=== PATIENT | female | born 1955 | race Caucasian/White ===

== ENCOUNTER 2018-04-17 11:03 | Emergency (ER) | payer MEDICARE, MEDICAID ==
--- NOTE | 2018-04-17 12:11 | ER Document Report ---
HPI - HPI Patient complains to provider of: LEFT KNEE PAIN Time Seen by Provider: 04/17/18 12:03 Onset: Last week Onset/Duration: Sudden, Persistent Quality of pain: Achy Severity: Severe Pain Level: 4 Context: She presents emergency department with complaints of left knee pain. Patient reports on [place] nancy she fell outside onto her anterior knee. Reports it has hurt since that time. She reports she is able to barely walk but with se sal pain. She is unable to straighten her leg without pain. Her sister drove her here. She has been taking tramadol for the pain without relief of symptoms. Previous trauma to the knee. Associated Symptoms: None Exacerbated by: Movement, Walking Relieved by: Denies Similar symptoms previously: No Recently seen / treated by doctor: No - CONSTITUTIONAL Constitutional: DENIES: Fever, Chills - REPRODUCTIVE Reproductive: DENIES: : - MUSCULOSKELETAL Musculoskeletal: REPORTS: Extremity pain - left knee Past Medical History - General Information source: Patient - Social History Smoking Status: Former Smoker Cigarette use (# per day): No Frequency of alcohol use: None Drug Abuse: None Family History: None Patient has suicidal ideation: No Patient has homicidal ideation: No Endocrine Medical History: Reports: Hx Diabetes Mellitus Type 1 Renal/ Medical History: Denies: Hx Peritoneal Dialysis Musculoskeletal Medical History: Reports Hx Arthritis Past Surgical History: Reports: Hx Cholecystectomy, Hx Orthopedic Surgery - right knee replacement, bilateral carpal tunnel, fusion of L3-L4, Hx Tubal Ligation Vertical Provider Document - CONSTITUTIONAL Agree With Documented VS: Yes Exam Limitations: No Limitations General Appearance: WD/WN, Mild Distress - WINCES WHEN KNEE IS PALPATED OR moved - INFECTION CONTROL TRAVEL OUTSIDE OF THE [place] IN LAST 30 DAYS: No - HEENT HEENT: Atraumatic, Normocephalic - NECK Neck: Supple - RESPIRATORY Respiratory: No Respiratory Distress - CARDIOVASCULAR Cardiovascular: Regular Rate - MUSCULOSKELETAL/EXTREMETIES Musculoskeletal/Extremeties: Tender. negative: Eccymosis - NEURO Level of Consciousness: Awake, Alert, Appropriate - DERM Integumentary: Warm, Dry Adult Front & Back Diagram: 1 - Patient complains of severe pain when her anterior knee is palpated or with any movement. Unable to extend due to pain. No obvious deformity no erythema swelling or warmth good pedal pulse Course - Re-evaluation Re-evalutation: 04/17/18 1335 patella fracture noted. Contacted Dr. Ozuna. Plan of care is to apply knee immobilizing splint and place patient on walker or crutches her choice. Patient will follow up with Dr. Ozuna on Saturday. Discussed this plan of care with patient she verbalized understanding and agrees to plan. 04/17/18 14:06 Patient declines crutches and reports she has a walker at home she will use. - Vital Signs Vital signs: Temp Pulse Resp BP Pulse Ox 98.2 F 93 18 118/56 L 98 04/17/18 11:12 04/17/18 11:12 04/17/18 11:12 04/17/18 11:12 04/17/18 11:12 - Diagnostic Test Radiology reviewed: Image reviewed, Reports reviewed - EXAM DESCRIPTION: KNEE LEFT 4 VIEW COMPLETED DATE/TIME: 04/17/2018 12:47 pm REASON FOR STUDY: FELL RIGHT ON KNEE, PAIN COMPARISON: None. NUMBER OF VIEWS: Four views. TECHNIQUE: AP, lateral, and both oblique radiographic images acquired of the left knee. LIMITATIONS: None. FINDINGS: MINERALIZATION: Osteopenia. BONES: Nondisplaced transverse fracture of the patella. JOINT: Small effusion. SOFT TISSUES: Prepatellar swelling. No foreign body. OTHER: No other significant finding. IMPRESSION: Nondisplaced fracture of the patella. TECHNICAL DOCUMENTATION: JOB ID: [id number] [employer]- All Rights Reserved Reading location - IP/workstation name: [email or web address] Dictated by: ANA SCOTT MD [id number] CC: OSCAR WELLER NP > Procedures - Immobilization Left Knee Pre-Proc Neuro Vasc Exam: Normal Immobilizer type: Knee immobilizer Performed by: PCT Post-Proc Neuro Vasc Exam: Unchanged from pre-exam Alignment checked and good: Yes Discharge - Discharge Clinical Impression: Patellar fracture Qualifiers: Encounter type: initial encounter Fracture type: closed Fracture morphology: transverse Fracture alignment: nondisplaced Laterality: left Qualified Code(s): S82.035A - Nondisplaced transverse fracture of left patella, initial encounter for closed fracture Condition: Stable Disposition: HOME, SELF-CARE Instructions: Use of Crutches ([facility]), Fractured Patella ([facility]), Ice & Elevation ([facility]), Knee Effusion ([facility]), Knee Immobilizing Splint ([facility]), Oral Narcotic Medication ([facility]) Additional Instructions: *You have been evaluated for a fractured patella *Rest/Ice/Elevate your knee *Maintain the splint *Use your crutches *Follow up with Dr Ozuna for an appointment for next Saturday *Take medication as prescribed for pain *Return to ED for worsening condition, changes, needs Prescriptions: Oxycodone HCl/Acetaminophen [Percocet 5-325 mg Tablet] 1 tab PO ASDIR PRN #15 tablet PRN Reason: Referrals: LORA OZUNA DO [ACTIVE STAFF] - 04/21/18
--- NOTE | 2018-04-17 13:02 | RADIOLOGY REPORT (SQ) ---
EXAM DESCRIPTION: KNEE LEFT 4 VIEW COMPLETED DATE/TIME: 04/17/2018 12:47 pm REASON FOR STUDY: FELL RIGHT ON KNEE, PAIN COMPARISON: None. NUMBER OF VIEWS: Four views. TECHNIQUE: AP, lateral, and both oblique radiographic images acquired of the left knee. LIMITATIONS: None. FINDINGS: MINERALIZATION: Osteopenia. BONES: Nondisplaced transverse fracture of the patella. JOINT: Small effusion. SOFT TISSUES: Prepatellar swelling. No foreign body. OTHER: No other significant finding. IMPRESSION: Nondisplaced fracture of the patella. TECHNICAL DOCUMENTATION: JOB ID: [id number] [employer]- All Rights Reserved Reading location - IP/workstation name: [email or web address]
[2018-04-17 14:11] VITALS: BP 148/63
== END 2018-04-17 14:13 | disposition home or self-care (01) ==
LOC: ER 11:03
DX: S82.035A Nondisplaced transverse fracture of left patella, initial encounter for closed fracture (principal); M25.562 Pain in left knee; W19.XXXA Unspecified fall, initial encounter; E10.9 Type 1 diabetes mellitus without complications; Z87.891 Personal history of nicotine dependence
CPT/HCPCS: 99283; 73564; L1830

== ENCOUNTER 2019-12-02 20:34 | Emergency (ER) | payer MEDICARE, MEDICAID ==
--- NOTE | 2019-12-02 20:50 | ER Document Report ---
ED General - General Stated Complaint: HEADACHE Time Seen by Provider: 12/02/19 20:39 Primary Care Provider: ZACHARY BETANCOURT MD [Primary Care Provider] - Follow up in 3-5 days Notes: Patient is a 64-year-old female that comes emergency department for chief complaint of a headache on the right side of her head for the past 4 days. It was gradual onset. She states it is constant and has not gone away, she is taken multiple doses of Fioricet without relief, she was here 2 days ago and re- prescribed clindamycin and given Fioricet. She admits she has taken 12 doses of the fioricet today. She denies visual changes, nausea, vomiting, neck pain, head or neck injury, fever/chills, focal numbness or weakness. She states that she has had a lot of oral surgery recently and she is currently on clindamycin, she has had essentially all of her teeth extracted, most recent procedure was about 4 weeks ago. Past medical history of type 1 diabetes with an insulin pump, chronic pain on Percocet, hyperlipidemia, hypothyroidism, anxiety/depression. TRAVEL OUTSIDE OF THE [place] IN LAST 30 DAYS: No - Related Data Allergies/Adverse Reactions: cephalexin [From Keflex] Allergy (Verified 12/02/19 20:48) cisapride [From Propulsid] Allergy (Verified 12/02/19 20:48) Penicillins Allergy (Verified 12/02/19 20:48) Sulfa (Sulfonamide Antibiotics) Allergy (Verified 12/02/19 20:48) Past Medical History - General Information source: Patient - Social History Smoking Status: Never Smoker Drug Abuse: None Lives with: Family Family History: None - Past Medical History Cardiac Medical History: Reports: Hx Hypercholesterolemia Endocrine Medical History: Reports: Hx Diabetes Mellitus Type 1 Renal/ Medical History: Denies: Hx Peritoneal Dialysis Musculoskeletal Medical History: Reports Hx Arthritis Past Surgical History: Reports: Hx Cholecystectomy, Hx Oral Surgery, Hx Orthopedic Surgery - right knee replacement, bilateral carpal tunnel, fusion of L3-L4, Hx Tubal Ligation - Immunizations Hx Diphtheria, Pertussis, Tetanus Vaccination: Yes Review of Systems - Review of Systems Constitutional: No symptoms reported EENT: See HPI Cardiovascular: No symptoms reported Respiratory: No symptoms reported Gastrointestinal: No symptoms reported Genitourinary: No symptoms reported Female Genitourinary: No symptoms reported Musculoskeletal: No symptoms reported Skin: No symptoms reported Hematologic/Lymphatic: No symptoms reported Neurological/Psychological: See HPI Physical Exam - Vital signs Vitals: Temp Pulse Resp BP Pulse Ox 98.0 F 95 16 108/39 L 98 12/02/19 20:41 12/02/19 20:41 12/02/19 20:41 12/02/19 20:41 12/02/19 20:41 - Notes Notes: GENERAL: Alert, interacts well. No acute distress. HEAD: Normocephalic, atraumatic. EYES: Pupils equal, round, and reactive to light. Extraocular movements intact. ENT: Oral mucosa moist, tongue midline. Oropharynx unremarkable. Airway patent. Nares patent, sinuses non-tender, ear canals unremarkable, TM's intact. Patient has no teeth, minimal tenderness along upper and lower gumline's which is nonspecific, no overt swelling, erythema, or abscesses noted. Some pain over the right side of the face with opening of the jaw. NECK: Full range of motion. Supple. Trachea midline. No lymphadenopathy. LUNGS: Clear to auscultation bilaterally, no wheezes, rales, or rhonchi. No respiratory distress. Non-tender chest wall. HEART: Regular rate and rhythm. No murmur ABDOMEN: Soft, non-tender. Non-distended. EXTREMITIES: Moves all 4 extremities spontaneously. No edema, normal radial and dorsalis pedis pulses bilaterally. No cyanosis. BACK: no cervical, thoracic, lumbar midline tenderness. No saddle anesthesia, normal distal neurovascular exam. Moves all extremities in full range of motion. NEUROLOGICAL: Alert and oriented x3. Normal speech. Cranial nerves II through XII grossly intact. Strength 5/5 in all extremities. PSYCH: Normal affect, normal mood. SKIN: Warm, dry, normal turgor. No rashes or lesions noted. Course - Re-evaluation Re-evalutation: Patient reporting headache, denies history of headaches, was evaluated for the same headache 2 days ago and had a negative CAT scan of the head at that time. She does not have any neurological deficits, patient has some discomfort in her jaw with opening her mouth but this does not appear to be related and patient insists that it is not related. She has no signs of trauma or reported trauma, no fever, no nuchal rigidity. CBC unremarkable, chemistry with slightly low sodium, otherwise unremarkable. Patient reportedly took 12 doses of her Fioricet today and nursing staff already called poison control and the recommendation is to monitor the patient for 6 hours and repeat Tylenol at the 4-hour niraj. This will be performed. EKG unremarkable. Tylenol level is borderline, remaining evaluation unremarkable. Because of patient's ongoing headache, lack of history of headaches, I did discuss with Dr. Martínez. Recommendation is MRI of the brain without contrast. I discussed with patient, she is in full agreement with this plan. MRI of the brain with no acute findings or reasons for patient's headache but does show borderline questionable hydrocephalus. I discussed this, hy ponatremia, ongoing dental pain with patient at length. Patient already has established follow-up with the dentist, she will follow-up with primary care with a copy of her MRI for additional monitoring and management, discussed return precautions. Patient has no headache after treatments on my ree valuation's although she did have recurrence once while waiting for repeat Tylenol and this was medicated again. Repeat Tylenol unremarkable. Patient is requesting discharge. Stable and well-appearing at time of discharge. - Vital Signs Vital signs: Temp Pulse Resp BP Pulse Ox 98.4 F 89 16 120/84 96 12/03/19 04:55 12/03/19 04:55 12/03/19 04:55 12/03/19 04:55 12/03/19 04:55 - Laboratory Result Diagrams: 12/02/19 21:55 12/02/19 21:55 Laboratory results interpreted by me: 12/02/19 12/02/19 12/03/19 21:55 21:55 03:22 RDW 14.9 H Plt Count 504 H Sodium 129.9 L Glucose 161 H POC Glucose Alkaline Phosphatase 159 H Salicylates < 1.0 L Acetaminophen < 10 L 12/03/19 03:30 RDW Plt Count Sodium Glucose POC Glucose 195 H Alkaline Phosphatase Salicylates Acetaminophen - EKG Interpretation by Me Additional EKG results interpreted by me: EKG shows sinus rhythm at a rate of 96, QTc 421, borderline axis, borderline T waves anteriorly but no significant T wave inversions or ST segment changes in consecutive leads. Discharge - Discharge Clinical Impression: Mouth pain Headache Qualifiers: Headache type: unspecified Headache chronicity pattern: unspecified pattern Intractability: not intractable Qualified Code(s): R51 - Headache Condition: Stable Disposition: HOME, SELF-CARE Additional Instructions: The MRI of your brain shows no findings to explain your headache. There are some subtle changes on the image, please show your primary care with the report that you have been provided for additional follow-up and management. Remaining work-up does not show any concerning findings. Do not take more than the prescribed doses of any of your medications. This is very dangerous and could lead to great harm or even . Based on your symptoms I suspect the pain is referred pain from your ongoing jaw pain. Please follow-up with your dentist for additional management, continue your clindamycin. Return if you worsen including severe worsening headache, vomiting, fever, or any other concerning symptoms. Referrals: ZACHARY BETANCOURT MD [Primary Care Provider] - Follow up in 3-5 days
[2019-12-02 22:29] LABS: ABSOLUTE BASOPHILS # (AUTO) 0.1 10^3/uL (0.0-0.2); ABSOLUTE EOSINOPHILS # (AUTO) 0.1 10^3/uL (0.0-0.6); ABSOLUTE LYMPHOCYTES (AUTO) 1.9 10^3/uL (0.5-4.7); ABSOLUTE MONOCYTES (AUTO) 0.7 10^3/uL (0.1-1.4); ABSOLUTE NEUT (AUTO) 7.5 10^3/uL (1.7-8.2); BASOPHILS % (AUTO) 0.7 % (0-2); EOSINOPHILS % (AUTO) 0.9 % (0-6); HEMOGLOBIN 12.2 g/dL (12.0-15.5); LYMPHOCYTES % (AUTO) 18.5 % (13-45); MEAN CORPUSCULAR HEMOGLOBIN 27.4 pg (27.0-33.4); MEAN CORPUSCULAR VOLUME 83 fl (80-97); MONOCYTES % (AUTO) 7.2 % (3-13); PLATELET COUNT 504 10^3/uL (150-450); RED BLOOD COUNT 4.46 10^6/uL (3.72-5.28); RED CELL DISTRIBUTION WIDTH 14.9 % (11.5-14.0); SEGMENTED NEUTROPHILS % (AUTO) 72.7 % (42-78); TOTAL CELLS COUNTED % (AUTO) 100 %; WHITE BLOOD COUNT 10.3 10^3/uL (4.0-10.5)
[2019-12-02 22:35] LABS: ACETAMINOPHEN 11 ug/mL (10-30); ALBUMIN 3.7 g/dL (3.5-5.0); ALKALINE PHOSPHATASE 159 U/L (38-126); ANION GAP 6 (5-19); ASPARTATE AMINO TRANSFERASE 29 U/L (14-36); BILIRUBIN,DIRECT 0.2 mg/dL (0.0-0.4); BILIRUBIN,TOTAL 0.7 mg/dL (0.2-1.3); BLOOD UREA NITROGEN 9 mg/dL (7-20); CARBON DIOXIDE 22 mmol/L (22-30); CHLORIDE 102 mmol/L (98-107); GLUCOSE 161 mg/dL (75-110); TOTAL PROTEIN 6.7 g/dL (6.3-8.2)
[2019-12-02 22:42] LABS: SALICYLATE < 1.0 mg/dL (2.0-20.0)
[2019-12-02 22:44] LABS: POTASSIUM 4.7 mmol/L (3.6-5.0)
[2019-12-02] MEDS: DIPHENHYDRAMINE HCL 50 MG/ML VIAL IV ONE (22:48)
--- NOTE | 2019-12-02 22:48 | RADIOLOGY REPORT (SQ) ---
EXAM DESCRIPTION: MR BRAIN WITHOUT IV CONTRAST COMPLETED DATE/TME: 12/02/2019 21:18 CLINICAL INDICATION: 64-year-old female with headache. COMPARISON: Noncontrast CT brain 12/02/2019. TECHNIQUE: Multiplanar, multi-sequence MR imaging of the brain without intravenous administration of contrast. FINDINGS: No abnormal increased signal intensity is present on diffusion-weighted imaging to suggest restricted diffusion/acute infarction. T2/flair weighted imaging reveals multifocal areas of patchy increased signal intensity present in a subcortical and periventricular deep white matter distribution, a nonspecific finding however may be seen with small vessel ischemic change. There is no evidence of intracranial hemorrhage, mass or edema. Midline structures are within normal limits. The ventricles and sulci are enlarged suggesting underlying volume loss versus normal pressure hydrocephalus. Major intracranial flow voids are identified. The paranasal sinuses and mastoid air cells are patent. IMPRESSION: 1. No specific MRI findings noted to suggest etiology of the patient's headache. 2. Ventriculomegaly of uncertain etiology raising the possibility of volume loss versus normal pressure hydrocephalus in the correct clinical setting.
[2019-12-02] MEDS: METOCLOPRAMIDE HCL INJ/PF 10 MG/2 ML SDV IV ONE (22:49)
[2019-12-02] MEDS: NORMAL SALINE 1000 ML 1,000 ML IV ONE (22:49)
[2019-12-02] MEDS: MORPHINE SULFATE 10 MG/ML INJ IV ONE ×2 (23:07→23:08)
[2019-12-03] MEDS: OXYCODONE HCL IR 5 MG TABLET PO ONE (03:45)
[2019-12-03] MEDS: ONDANSETRON 4 MG TAB.RAPDIS PO ONE (03:46)
[2019-12-03] MEDS: FENTANYL CITRATE INJ/PF 100 MCG/2 ML AMPUL IV ONE (03:54)
[2019-12-03] MEDS: METOCLOPRAMIDE HCL INJ/PF 10 MG/2 ML SDV IV ONE (03:54)
[2019-12-03 04:58] VITALS: BP 120/84
--- NOTE | 2019-12-03 15:11 | EKG REPORT ---
SEVERITY:- ABNORMAL ECG - SINUS RHYTHM LEFT ATRIAL ABNORMALITY BORDERLINE T ABNORMALITIES, ANT-LAT LEADS : Confirmed by: Huang Camacho MD 03-Dec-2019 15:11:21
== END 2019-12-03 04:55 | disposition home or self-care (01) ==
LOC: ER 20:34
DX: R51 Headache (principal); K08.89 Other specified disorders of teeth and supporting structures; Z79.899 Other long term (current) drug therapy; Z88.0 Allergy status to penicillin; Z88.2 Allergy status to sulfonamides; Z88.1 Allergy status to other antibiotic agents; Z88.8 Allergy status to other drugs, medicaments and biological substances; E10.9 Type 1 diabetes mellitus without complications
CPT/HCPCS: 93005; 99285; 96374; 96375; 36415; 82962; 80307 ×2; 85025; 80053; 70551; 93010; J1200; A9270 ×2; J2765; J2270; J7030; S0119

== ENCOUNTER 2019-12-09 11:04 | Inpatient (IN) | payer MEDICARE, MEDICAID ==
[2019-12-09] MEDS ORDERED: DEXAMETHASONE SOD PHOS INJ 10 MG/1 ML VIAL IV ONE (11:27)
[2019-12-09] MEDS ORDERED: RINGERS SOLUTION,LACTATED 1,000 ML IV ONE ×2 (11:27→14:06)
[2019-12-09] MEDS ORDERED: MORPHINE SULFATE 10 MG/ML INJ IV ONE ×2 (11:29→12:34)
--- NOTE | 2019-12-09 11:32 | ER Document Report ---
ED Medical Screen (RME) - General Stated Complaint: MOUTH PAIN Time Seen by Provider: 12/09/19 11:17 Primary Care Provider: ZACHARY BETANCOURT MD [Primary Care Provider] - Follow up as needed Mode of Arrival: Wheelchair Information source: Relative Notes: HPI; 64-year-old female presents emergency room with family complaining of difficulty swallowing and speaking. Per sister she has been drooling. Patient had several teeth removed over the past 4 months developed infections. Tried to see the original dentist's office is now closed. Saw an oral surgeon this morning who told her it was not dental related. Referred to the ER for CT. PE: Alert and oriented x3. Difficulty speaking. Lungs: Clear to auscultation without rales, rhonchi, wheezes. Heart: Regular rate rhythm without murmurs, rubs, gallops. Patient unable to open mouth well enough to visualize the posterior pharynx. Obvious swelling noted to the neck. I have greeted and performed a rapid initial assessment of this patient. A comprehensive ED assessment and evaluation of the patient, analysis of test results and completion of the medical decision making process will be conducted by additional ED providers. I have specifically instructed the patient or family members with the patient to immediately return to any nursing staff should anything change in the patient's condition or with their chief complaint. TRAVEL OUTSIDE OF THE [place] IN LAST 30 DAYS: No - Related Data Allergies/Adverse Reactions: cephalexin [From Keflex] Allergy (Verified 12/09/19 11:20) cisapride [From Propulsid] Allergy (Verified 12/09/19 11:20) Penicillins Allergy (Verified 12/09/19 11:20) Sulfa (Sulfonamide Antibiotics) Allergy (Verified 12/09/19 11:20) Past Medical History - Past Medical History Cardiac Medical History: Reports: Hx Hypercholesterolemia Endocrine Medical History: Reports: Hx Diabetes Mellitus Type 1 Renal/ Medical History: Denies: Hx Peritoneal Dialysis Musculoskeltal Medical History: Reports Hx Arthritis Past Surgical History: Reports: Hx Cholecystectomy, Hx Oral Surgery, Hx Orthopedic Surgery - right knee replacement, bilateral carpal tunnel, fusion of L3-L4, Hx Tubal Ligation - Immunizations Hx Diphtheria, Pertussis, Tetanus Vaccination: Yes Physical Exam - Vital signs Vitals: Temp Pulse Resp BP Pulse Ox 98.9 F 107 H 16 135/51 H 100 12/09/19 11:09 12/09/19 11:09 12/09/19 11:09 12/09/19 11:09 12/09/19 11:09 Course - Vital Signs Vital signs: Temp Pulse Resp BP Pulse Ox 98.9 F 107 H 16 135/51 H 100 12/09/19 11:09 12/09/19 11:09 12/09/19 11:09 12/09/19 11:09 12/09/19 11:09 Doctor's Discharge - Discharge Referrals: ZACHARY BETANCOURT MD [Primary Care Provider] - Follow up as needed
[2019-12-09] MEDS ORDERED: ONDANSETRON HCL INJ/PF 4 MG/2 ML SDV IV ONE (12:34)
--- NOTE | 2019-12-09 13:01 | ER Document Report ---
Entered by RANJITH CHIN SCRIBE 12/09/19 1242 Acting as scribe for:VIVI DOS SANTOS MD ED ENT - General Chief Complaint: Difficulty Swallowing Stated Complaint: MOUTH PAIN Time Seen by Provider: 12/09/19 11:17 Primary Care Provider: ZACHARY BETANCOURT MD [Primary Care Provider] - Follow up as needed Mode of Arrival: Wheelchair Information source: Patient Notes: This 64-year-old female patient presents to the emergency department today with complaints of a sore throat with associated swelling. Patient has swelling underneath the tongue at the floor her mouth. Patient is now having difficulty speaking and swallowing because the tongue is pushed up. There is no posterior oropharynx swelling. TRAVEL OUTSIDE OF THE [place] IN LAST 30 DAYS: No - Related Data Allergies/Adverse Reactions: cephalexin [From Keflex] Allergy (Verified 12/09/19 11:20) cisapride [From Propulsid] Allergy (Verified 12/09/19 11:20) Penicillins Allergy (Verified 12/09/19 11:20) Sulfa (Sulfonamide Antibiotics) Allergy (Verified 12/09/19 11:20) Past Medical History - General Information source: Relative - Social History Smoking Status: Former Smoker Cigarette use (# per day): No Chew tobacco use (# tins/day): No Frequency of alcohol use: None Drug Abuse: None Lives with: Family Family History: None Patient has homicidal ideation: No - Past Medical History Cardiac Medical History: Reports: Hx Hypercholesterolemia Endocrine Medical History: Reports: Hx Diabetes Mellitus Type 1 Musculoskeletal Medical History: Reports Hx Arthritis Past Surgical History: Reports: Hx Cholecystectomy, Hx Oral Surgery, Hx Orthopedic Surgery - right knee replacement, bilateral carpal tunnel, fusion of L3-L4, Hx Tubal Ligation - Immunizations Hx Diphtheria, Pertussis, Tetanus Vaccination: Yes Review of Systems - Review of Systems Constitutional: No symptoms reported EENT: See HPI, Throat pain, Difficulty swallowing Cardiovascular: No symptoms reported Respiratory: No symptoms reported Gastrointestinal: No symptoms reported Genitourinary: No symptoms reported Female Genitourinary: No symptoms reported Musculoskeletal: No symptoms reported Skin: No symptoms reported Hematologic/Lymphatic: No symptoms reported Neurological/Psychological: No symptoms reported -: Yes All other systems reviewed and negative Physical Exam - Vital signs Vitals: Temp Pulse Resp BP Pulse Ox 98.9 F 107 H 16 135/51 H 100 12/09/19 11:09 12/09/19 11:09 12/09/19 11:09 12/09/19 11:09 12/09/19 11:09 - Notes Notes: Physical Exam: General: Alert. HEENT: Normocephalic. Atraumatic. PERRL. Extraocular movements intact. Oropharynx clear, no posterior oropharynx edema. Significant swelling at the floor the mouth, grossly swollen and tongue is pushed up. Area is not inflamed. Neck: Supple. Non-tender. Respiratory: No respiratory distress. Clear and equal breath sounds bilaterally. Cardiovascular: Regular rate and rhythm. Abdominal: Normal Inspection. Non-tender. No distension. Normal Bowel Sounds. Back: No gross abnormalities. Extremities: Moves all four extremities. Upper extremities: Normal inspection. Normal ROM. Lower extremities: Normal inspection. No edema. Normal ROM. Neurological: Normal cognition. AAOx4. Normal speech. Psychological: Normal affect. Normal Mood. Skin: Warm. Dry. Normal color. Course - Vital Signs Vital signs: Temp Pulse Resp BP Pulse Ox 98.9 F 107 H 16 135/51 H 100 12/09/19 11:09 12/09/19 11:09 12/09/19 11:09 12/09/19 11:09 12/09/19 11:09 - Laboratory Result Diagrams: 12/09/19 12:49 12/09/19 12:49 Laboratory results interpreted by me: 12/09/19 12/09/19 12:49 12:49 WBC 15.5 H RDW 14.3 H Plt Count 766 H Lymph % (Auto) 10.7 L Absolute Neuts (auto) 12.5 H Seg Neutrophils % 80.6 H Sodium 132.3 L Chloride 96 L Creatinine 0.40 L Glucose 161 H Alkaline Phosphatase 203 H - Diagnostic Test Radiology reviewed: Image reviewed, Reports reviewed - CT scan shows large abscess in the floor the mouth consistent with Griffin's angina. - EKG Interpretation by Ne EKG shows normal: Sinus rhythm, [place], Intervals, QRS Complexes. abnormal: ST-T Waves - Borderline anterolateral T abnormalities Rate: Tachycardia - 108 P Waves: LAE When compared to previous EKG there are: No significant change - Consults Dr. Hope Consulted provider: will see as inpatient - Request I get the hospitalist to admit the patient and notify anesthesia. Dr. Jackson Time consulted: 15:05 Consulted provider: will come to ER Discharge - Discharge Clinical Impression: Ludwigs angina Type 1 diabetes mellitus Qualifiers: Diabetes mellitus complication status: without complication Qualified Code(s): E10.9 - Type 1 diabetes mellitus without complications Leukocytosis Qualifiers: Leukocytosis type: unspecified Qualified Code(s): D72.829 - Elevated white blood cell count, unspecified Condition: Stable Disposition: ADMITTED INPATIENT Admitting Provider: Renetta (Hospitalist) Unit Admitted: Surgical Floor Referrals: ZACHARY BETANCOURT MD [Primary Care Provider] - Follow up as needed I personally performed the services described in the documentation, reviewed and edited the documentation which was dictated to the scribe in my presence, and it accurately records my words and actions.
[2019-12-09 13:02] LABS: ABSOLUTE BASOPHILS # (AUTO) 0.2 10^3/uL (0.0-0.2); ABSOLUTE EOSINOPHILS # (AUTO) 0.1 10^3/uL (0.0-0.6); ABSOLUTE LYMPHOCYTES (AUTO) 1.7 10^3/uL (0.5-4.7); ABSOLUTE MONOCYTES (AUTO) 1.1 10^3/uL (0.1-1.4); ABSOLUTE NEUT (AUTO) 12.5 10^3/uL (1.7-8.2); EOSINOPHILS % (AUTO) 0.4 % (0-6); HEMATOCRIT 41.8 % (36.0-47.0); LYMPHOCYTES % (AUTO) 10.7 % (13-45); MEAN CORPUSCULAR HEMOGLOBIN 27.2 pg (27.0-33.4); MEAN CORPUSCULAR HGB CONC 33.4 g/dL (32.0-36.0); MEAN CORPUSCULAR VOLUME 81 fl (80-97); MONOCYTES % (AUTO) 7.3 % (3-13); PLATELET COUNT 766 10^3/uL (150-450); RED BLOOD COUNT 5.14 10^6/uL (3.72-5.28); RED CELL DISTRIBUTION WIDTH 14.3 % (11.5-14.0); SEGMENTED NEUTROPHILS % (AUTO) 80.6 % (42-78); TOTAL CELLS COUNTED % (AUTO) 100 %; WHITE BLOOD COUNT 15.5 10^3/uL (4.0-10.5)
[2019-12-09] MEDS ORDERED: DEXAMETHASONE SOD PHOSPHATE INJ 4 MG/1 ML VIAL ONE ×2 (13:13→16:03)
[2019-12-09 13:18] LABS: ALBUMIN 4.3 g/dL (3.5-5.0); ALKALINE PHOSPHATASE 203 U/L (38-126); ANION GAP 11 (5-19); ASPARTATE AMINO TRANSFERASE 24 U/L (14-36); BILIRUBIN,DIRECT 0.2 mg/dL (0.0-0.4); BILIRUBIN,TOTAL 0.7 mg/dL (0.2-1.3); BLOOD UREA NITROGEN 7 mg/dL (7-20); CALCIUM 9.4 mg/dL (8.4-10.2); CARBON DIOXIDE 25 mmol/L (22-30); CHLORIDE 96 mmol/L (98-107); GLUCOSE 161 mg/dL (75-110); POTASSIUM 4.2 mmol/L (3.6-5.0); TOTAL PROTEIN 7.8 g/dL (6.3-8.2)
--- NOTE | 2019-12-09 14:20 | RADIOLOGY REPORT (SQ) ---
EXAM DESCRIPTION: CT SOFT TISSUE NECK WITH IMAGES COMPLETED DATE/TIME: 12/09/2019 1:37 pm REASON FOR STUDY: Throat swelling COMPARISON: None. TECHNIQUE: Post IV contrasted scanning from skull base through lung apices with review of bone, soft tissue and lung windows. Reconstructed coronal and sagittal MPR images reviewed. All images stored on PACS. All CT scanners at this facility use dose modulation, iterative reconstruction, and/or weight based d osing when appropriate to reduce radiation dose to as low as reasonably achievable (ALARA). [facility]: Dose Right [facility]: CareDose [facility]: Dose Right [facility]: Teradose 4D [facility]: [employer] CONTRAST TYPE AND DOSE: contrast/concentration: Isovue 350.00 mmol/ml; Total Contrast Delivered: 75. 0 ml; Total Saline Delivered: 42.8 ml RENAL FUNCTION: BUN 9; creatinine 0.65 RADIATION DOSE: CT Rad equipment meets quality standard of care and radiation dose reduction techniq ues were employed. CTDIvol: 13.6 mGy. DLP: 361 mGy-cm. . LIMITATIONS: None. FINDINGS: SKULL BASE: Intact. MAJOR SALIVARY GLANDS: No solid or cystic masses. No inflammatory changes. LYMPHADENOPATHY: No adenopathy. MUCOSAL MASSES OR ASYMMETRY: Inflammatory changes are seen of the floor of the mouth with 3.3 x 2.3 x 3.7 cm hypoattenuating collection with peripheral enhancement, consistent with sublingual abscess. Inflammatory changes are seen throughout the floor of the mouth. LARYNX/CORDS: No abnormal findings. VASCULAR STRUCTURES: The major vessels are patent. LUNG APICES: Clear. BONES: The patient is edentulous; cortical rarefaction is seen of the right anterior mandible (whitlock l image 19, sagittal image 25). Degenerative changes are seen of the spine. THYROID: Normal size. No masses. PARANASAL SINUSES: Clear. OTHER: No other significant finding. 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 The appearance of right anterior mandibular cortical rarefaction of the alveolar ridge suggests odontogenic origin. TECHNICAL DOCUMENTATION: JOB ID: [id number] Quality ID # [id number]: Final reports with documentation of one or more dose reduction techniques (e.g., Au tomated exposure control, adjustment of the mA and/or kV according to patient size, use of iterative reconstruction technique) 2010 [employer]- All Rights Reserved Reading location - IP/workstation name: [email or web address]
[2019-12-09] MEDS ORDERED: LEVOFLOXACIN 750 MG/D5W RTU 750 MG/150 ML RTUPB IV ONE (14:52)
[2019-12-09] MEDS ORDERED: METHYLPREDNISOLONE INJ 125 MG/2 ML SDV IV ONE (14:53)
[2019-12-09] MEDS ORDERED: FENTANYL CITRATE INJ/PF 100 MCG/2 ML AMPUL ONE ×2 (16:02→19:26)
[2019-12-09] MEDS ORDERED: PROPOFOL INJ 200 MG/20 ML VIAL IV ONE (16:03)
[2019-12-09] MEDS ORDERED: ONDANSETRON HCL INJ/PF 4 MG/2 ML SDV ONE (16:03)
[2019-12-09] MEDS ORDERED: MIDAZOLAM 2 MG/2 ML INJ ONE (16:03)
[2019-12-09] MEDS ORDERED: LIDOCAINE 2% INJ-PF (100 MG/5 ML) SYRINGE ONE (16:19)
[2019-12-09] MEDS ORDERED: ALBUTEROL SULFATE 0.083% NEB 2.5 MG/3 ML AMPUL NEB PRN (16:24)
[2019-12-09] MEDS ORDERED: LIDOCAINE 2%/EPINEPHRINE INJ 1.7 ML CARTRIDGE ONE (16:34)
--- NOTE | 2019-12-09 16:41 | PDOC H&P ---
History of Present Illness Admission Date/PCP: ZACHARY BETANCOURT MD Patient complains of: This patient presents to the emergency room with complaints of difficulty swallowing as well as neck swelling and sore throat. She also contact complains of drooling, difficulty speaking and tongue swelling. T History of Present Illness: JERSON BRAND is a 64 year old female This patient presents to the emergency room with complaints of difficulty swallowing as well as neck swelling and sore throat. She also contact complains of drooling, difficulty speaking and tongue swelling. She was in the emergency room with the same complaints about a week ago as well as a few days ago. She had been on clindamycin but despite these it appears that her swelling has advanced. Patient has been admitted with Griffin's angina. Her surgeon has been contacted and she is currently awaiting surgery. Past Medical History Cardiac Medical History: Reports: Hyperlipidema Endocrine Medical History: Reports: Diabetes Mellitus Type 1 Musculoskeltal Medical History: Reports: Arthritis Past Surgical History Past Surgical History: Reports: Cholecystectomy, Orthopedic Surgery - right knee replacement, bilateral carpal tunnel, fusion of L3-L4, Tubal Ligation Social History Information Source: Patient Lives with: Family Smoking Status: Former Smoker Electronic Cigarette use?: No - Advance Directive Resuscitation Status: Full Code Family History Family History: None Parental Family History Reviewed: Yes Children Family History Reviewed: Unknown Sibling(s) Family History Reviewed.: Unknown Medication/Allergy Home Medications: Oxycodone HCl/Acetaminophen [Percocet 5-325 mg Tablet] 1 tab PO ASDIR PRN #15 tablet 04/17/18 Butalb/Acetaminophen/Caffeine [Fioricet (50-325-40 mg) Tablet] 1 - 2 tab PO Q4H #20 tab 11/30/19 Chlorhexidine Gluconate [Paroex] 15 ml MM TID #473 ml 11/30/19 Clindamycin HCl 300 mg PO TID #30 capsule 11/30/19 Allergies/Adverse Reactions: cephalexin [From Keflex] Allergy (Verified 12/09/19 11:20) cisapride [From Propulsid] Allergy (Verified 12/09/19 11:20) Penicillins Allergy (Verified 12/09/19 11:20) Sulfa (Sulfonamide Antibiotics) Allergy (Verified 12/09/19 11:20) Review of Systems Constitutional: ABSENT: chills, fever(s), headache(s), weight gain, weight loss Eyes: ABSENT: visual disturbances Ears: ABSENT: hearing changes Nose, Mouth, and Throat: PRESENT: mouth pain, sore throat Cardiovascular: ABSENT: chest pain, dyspnea on exertion, edema, orthropnea, palpitations Respiratory: ABSENT: cough, hemoptysis, sputum Gastrointestinal: ABSENT: abdominal pain, constipation, diarrhea, hematemesis, hematochezia, nausea, vomiting Genitourinary: ABSENT: dysuria, hematuria Musculoskeletal: ABSENT: joint swelling Integumentary: ABSENT: rash, wounds Neurological: ABSENT: abnormal gait, abnormal speech, confusion, dizziness, focal weakness, syncope Psychiatric: ABSENT: anxiety, depression, homidical ideation, suicidal ideation Endocrine: ABSENT: cold intolerance, heat intolerance, polydipsia, polyuria Hematologic/Lymphatic: ABSENT: easy bleeding, easy bruising Physical Exam Vital Signs: Temp Pulse Resp BP Pulse Ox 98.9 F 107 H 16 135/51 H 100 12/09/19 11:09 12/09/19 11:09 12/09/19 11:09 12/09/19 11:09 12/09/19 11:09 Intake & Output 12/08/19 12/09/19 12/10/19 06:59 06:59 06:59 Intake Total 1000 Balance 1000 Weight 54.8 kg General appearance: PRESENT: no acute distress, well-nourished Mouth exam: PRESENT: other - diminished ability to open mouth, trismus tongue deviated swelling of neck and lower jaw, Teeth exam: PRESENT: dental tenderness, edentulous Neck exam: ABSENT: full ROM, JVD Respiratory exam: PRESENT: clear to auscultation gisele Cardiovascular exam: PRESENT: RRR, +S1, +S2 GI/Abdominal exam: PRESENT: normal bowel sounds, soft Rectal exam: PRESENT: deferred Neurological exam: PRESENT: alert, awake, oriented to person, oriented to place, oriented to time, oriented to situation, CN II-XII grossly intact. ABSENT: motor sensory deficit Psychiatric exam: PRESENT: appropriate affect Results Laboratory Results: 12/09/19 12:49 12/09/19 12:49 12/09/19 12/09/19 12:49 12:49 WBC 15.5 H RBC 5.14 Hgb 14.0 Hct 41.8 MCV 81 MCH 27.2 MCHC 33.4 RDW 14.3 H Plt Count 766 H Seg Neutrophils % 80.6 H Sodium 132.3 L Potassium 4.2 Chloride 96 L Carbon Dioxide 25 Anion Gap 11 BUN 7 Creatinine 0.40 L Est GFR ( Amer) > 60 Glucose 161 H Calcium 9.4 Total Bilirubin 0.7 AST 24 Alkaline Phosphatase 203 H Total Protein 7.8 Albumin 4.3 EKG Comments: Sinus tachycardia with nonspecific ST changes Impressions: Soft Tissue Neck CT 12/09/19 11:28 IMPRESSION: 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 The appearance of right anterior mandibular cortical rarefaction of the alveolar ridge suggests odontogenic origin. Assessment and Plan - Diagnosis (1) Leukocytosis Qualifiers: Leukocytosis type: unspecified Qualified Code(s): D72.829 - Elevated white blood cell count, unspecified Is this a current diagnosis for this admission?: Yes Plan: Patient does have a slight tachycardia, leukocytosis and a source infection. She has a case of mild sepsis. (2) Ludwigs angina Is this a current diagnosis for this admission?: Yes Plan: Patient clinical finding and MRI indicate a Griffin's angina picture. Is been taken to the OR appropriately. She had been on oral clindamycin and so antibiotics will be changed around as indicated. She will be made n.p.o. Seen her preoperatively so she will need reevaluation of her orders. (3) Type 1 diabetes mellitus Qualifiers: Diabetes mellitus complication status: without complication Qualified Code(s): E10.9 - Type 1 diabetes mellitus without complications Is this a current diagnosis for this admission?: Yes Plan: Patient will be n.p.o. Sliding scale insulin will have to be reevaluated postoperatively and adjusted as needed - Plan Summary Summary: Of note patient apparently had several teeth extractions starting in May although she says the last time was about 4 months ago. She started having swelling more recently but clearly her infection is likely related to her dentition or lack thereof. She received steroids as well as Levaquin and morphine in the emergency room - Time Time Spent with patient: 25-34 minutes Medications reviewed and adjusted accordingly: Yes Anticipated Discharge Disposition: Home, Self Care Anticipated Discharge Timeframe: within 72 hours
[2019-12-09] MEDS ORDERED: GLUCAGON,HUMAN RECOMB 1 MG INJ IM PRN ×2 (16:42→21:59)
[2019-12-09] MEDS ORDERED: MORPHINE SULFATE 10 MG/ML INJ IV PRN (16:42)
[2019-12-09] MEDS ORDERED: DEXTROSE 50%-WATER 25 GM/50 ML DISP.SYRIN IV PRN ×4 (16:42→21:59)
[2019-12-09] MEDS ORDERED: DEXTROSE 40% GEL 15 GM TUBE PO PRN ×4 (16:42→21:59)
[2019-12-09] MEDS ORDERED: BUPIVACAINE HCL 0.5%/EPI 1:200000 INJ 1.8 ML CARTRIDGE ONE (17:10)
[2019-12-09] MEDS ORDERED: METRONIDAZOLE 500 MG/NS RTU 500 MG/100 ML RTUPB IV ONE (18:09)
[2019-12-09] MEDS ORDERED: BACITRACIN INJ 50,000 UNIT VIAL ONE (18:40)
[2019-12-09] MEDS ORDERED: PROPOFOL 1,000 MG/100 ML INFUS..BTL IV ONE (19:26)
[2019-12-09] MEDS ORDERED: RINGERS SOLUTION,LACTATED 1,000 ML IV PRN (19:34)
[2019-12-09] MEDS: PROPOFOL 1,000 MG/100 ML INFUS..BTL IV PRN (19:35)
[2019-12-09] MEDS: FENTANYL CITRATE INJ/PF 100 MCG/2 ML AMPUL IV PRN (19:40)
--- NOTE | 2019-12-09 20:46 | CRITICAL CARE ADMISSION REPORT ---
HPI Date:: 12/09/19 Time:: 20:17 Reason for ICU Reason:: ludwigs angina admit dx post op intubation due to angioedema Admission Date/Time & PCP: Admission Date/Time: 12/09/19 16:28 Primary Care Provider: ZACHARY BETANCOURT MD 64 year old female who was admitted by hospitalist and then taken to the OR due to Ludwigs angina and postoperatively intubated due to glossitis and was sent to ICU under Dr. Javan mauro. HPI: 64 year old [place] female who has presented to the ER on several occasion for complaints of oral mucosa edema, diffuculty swallowing and drooling. The patient presented today to the ER and was admitted by the hospitalist team Dx. with Ludwigs angina and the decision was made for surgical intervention by Dr. Hope. The patient was taken to the OR and had a diffucult intubation due to edema. The patient was nasally intubted in the OR and post operatively remained intubated due to glossitis. The critical care team wa consulted for admission to the ICU and management of this patient. Dr. Hope oral surgeon will continue to follow closely as well. Upon arrival to ICU the patient was nasally intubated and tolerating mechanical ventilation well.A complete review of system is unable to be obtained due to intubation. - Diagnosis/Plan (1) Ludwigs angina Is this a current diagnosis for this admission?: Yes (2) Leukocytosis Qualifiers: Leukocytosis type: unspecified Qualified Code(s): D72.829 - Elevated white blood cell count, unspecified Is this a current diagnosis for this admission?: Yes (3) Type 1 diabetes mellitus Qualifiers: Diabetes mellitus complication status: without complication Qualified Code(s): E10.9 - Type 1 diabetes mellitus without complications Is this a current diagnosis for this admission?: No (4) Glossitis Is this a current diagnosis for this admission?: Yes Past Medical History Cardiac Medical History: Reports: Hyperlipidema Neurological Medical History: Reports: Migraine Endocrine Medical History: Reports: Diabetes Mellitus Type 1, Hypothyroidism Musculoskeltal Medical History: Reports: Arthritis Psychiatric Medical History: Reports: Depression Past Surgical History Past Surgical History: Reports: Cholecystectomy, Orthopedic Surgery - right knee replacement, bilateral carpal tunnel, fusion of L3-L4, Tubal Ligation Social/Family History - Social History Lives with: Family Smoking Status: Former Smoker - Medication/Allergies Home Medications: Chlorhexidine Gluconate [Paroex] 15 ml MM TID #473 ml 11/30/19 Clindamycin HCl 300 mg PO TID #30 capsule 11/30/19 Butalb/Acetaminophen/Caffeine [Fioricet (50-325-40 mg) Tablet] 2 tab PO Q4HP PRN 12/09/19 Desipramine HCl [Norpramin 50 Mg Tablet] 150 mg PO QHS 12/09/19 Vance's Magic Mouthwash With Lidocaine 2 ml PO DAILY 12/09/19 Duloxetine HCl [Cymbalta] 60 mg PO DAILY 12/09/19 Insulin Aspart [Novolog] 30 unit SQ DAILY 12/09/19 Levothyroxine Sodium [Synthroid 0.088 mg Tablet] 88 mcg PO DAILY 12/09/19 Meloxicam [Mobic 7.5 Mg Tablet] 7.5 mg PO DAILY 12/09/19 Simvastatin [Zocor 40 mg Tablet] 40 mg PO DAILY 12/09/19 Tramadol HCl [Ultram 50 mg Tablet] 50 mg PO Q6HP PRN 12/09/19 Allergies/Adverse Reactions: cephalexin [From Keflex] Allergy (Verified 12/09/19 11:20) cisapride [From Propulsid] Allergy (Verified 12/09/19 11:20) Penicillins Allergy (Verified 12/09/19 11:20) Sulfa (Sulfonamide Antibiotics) Allergy (Verified 12/09/19 11:20) Review of Systems ROS unobtainable: Due to endotracheal tube Physical Exam Vital Signs: Temp Pulse Resp BP Pulse Ox 98.9 F 107 H 16 135/51 H 100 12/09/19 11:09 12/09/19 11:09 12/09/19 11:09 12/09/19 11:09 12/09/19 11:09 Intake & Output 12/08/19 12/09/19 12/10/19 06:59 06:59 06:59 Intake Total 1000 Balance 1000 Weight 54.8 kg Weight/Height Weight 54.8 kg Height 4 ft 10.5 in General appearance: PRESENT: mild distress, well-developed, well-nourished Head exam: PRESENT: atraumatic, normocephalic Eye exam: PRESENT: periorbital swelling Ear exam: PRESENT: normal external ear exam Mouth exam: PRESENT: tongue midline, other - gross edema to tongue and lower lip Respiratory exam: PRESENT: clear to auscultation gisele Cardiovascular exam: PRESENT: RRR, +S1, +S2 Pulses: PRESENT: normal radial pulses, +2 pedal pulses bilateral GI/Abdominal exam: PRESENT: hypoactive bowel sounds, soft Rectal exam: PRESENT: deferred Gentrourinary exam: PRESENT: indwelling catheter Musculoskeletal exam: PRESENT: full ROM Neurological exam: PRESENT: reflexes normal, other - complete neuro exam unable to obtain due to sedation Skin exam: PRESENT: dry, intact, other - oral surgery no blood noted from oral cavity Tubes/Lines: PRESENT: Other - nasotracheal tube in place Laboratory/Radiographs Laboratory Results: 12/09/19 12:49 12/09/19 12:49 12/09/19 12/09/19 12:49 12:49 WBC 15.5 H RBC 5.14 Hgb 14.0 Hct 41.8 MCV 81 MCH 27.2 MCHC 33.4 RDW 14.3 H Plt Count 766 H Seg Neutrophils % 80.6 H Sodium 132.3 L Potassium 4.2 Chloride 96 L Carbon Dioxide 25 Anion Gap 11 BUN 7 Creatinine 0.40 L Est GFR ( Amer) > 60 Glucose 161 H Calcium 9.4 Total Bilirubin 0.7 AST 24 Alkaline Phosphatase 203 H Total Protein 7.8 Albumin 4.3 Impressions: Soft Tissue Neck CT 12/09/19 11:28 IMPRESSION: 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 The appearance of right anterior mandibular cortical rarefaction of the alveolar ridge suggests odontogenic origin. All labs, radiographs, diagnostic studies and EKGs were personally reviewed: Yes In addition, reports of radiographic and diagnostic studies were read: Yes Critical Time Critical Time (minutes): 55 -: The care of a critically ill patient is dynamic. This note represents a static moment in the admission process. Orders and treatments may be given simul taneously and urgently, and time is not union contract representative of the treatment process. This patient requires Critical Care secondary to life threatening organ or limb dysfunction. Without Critical Care services, the patient is at risk for increased mortality and morbidity.
--- NOTE | 2019-12-09 21:09 | PDOC CONSULTATION ---
Consultation Consult Date: 12/09/19 Provider Consulted: ALBERTO NUNEZ Consult reason:: Possible Ludwigs Angina History of Present Illness Admission Date/PCP: 12/09/19 16:28 ZACHARY BETANCOURT MD History of Present Illness: JERSON BRAND is a 64 year old female Past Medical History Cardiac Medical History: Reports: Hyperlipidema Neurological Medical History: Reports: Migraine Endocrine Medical History: Reports: Diabetes Mellitus Type 1, Hypothyroidism Musculoskeltal Medical History: Reports: Arthritis Psychiatric Medical History: Reports: Depression Past Surgical History Past Surgical History: Reports: Cholecystectomy, Orthopedic Surgery - right knee replacement, bilateral carpal tunnel, fusion of L3-L4, Tubal Ligation Social History Lives with: Family Smoking Status: Former Smoker Electronic Cigarette use?: No - Advance Directive Resuscitation Status: Full Code Family History Family History: None Parental Family History Reviewed: No Children Family History Reviewed: No Sibling(s) Family History Reviewed.: No Medication/Allergy Home Medications: Chlorhexidine Gluconate [Paroex] 15 ml MM TID #473 ml 11/30/19 Clindamycin HCl 300 mg PO TID #30 capsule 11/30/19 Butalb/Acetaminophen/Caffeine [Fioricet (50-325-40 mg) Tablet] 2 tab PO Q4HP PRN 12/09/19 Desipramine HCl [Norpramin 50 Mg Tablet] 150 mg PO QHS 12/09/19 Vance's Magic Mouthwash With Lidocaine 2 ml PO DAILY 12/09/19 Duloxetine HCl [Cymbalta] 60 mg PO DAILY 12/09/19 Insulin Aspart [Novolog] 30 unit SQ DAILY 12/09/19 Levothyroxine Sodium [Synthroid 0.088 mg Tablet] 88 mcg PO DAILY 12/09/19 Meloxicam [Mobic 7.5 Mg Tablet] 7.5 mg PO DAILY 12/09/19 Simvastatin [Zocor 40 mg Tablet] 40 mg PO DAILY 12/09/19 Tramadol HCl [Ultram 50 mg Tablet] 50 mg PO Q6HP PRN 12/09/19 Allergies/Adverse Reactions: cephalexin [From Keflex] Allergy (Verified 12/09/19 11:20) cisapride [From Propulsid] Allergy (Verified 12/09/19 11:20) Penicillins Allergy (Verified 12/09/19 11:20) Sulfa (Sulfonamide Antibiotics) Allergy (Verified 12/09/19 11:20) Physical Exam Vital Signs: Temp Pulse Resp BP Pulse Ox 98.3 F 99 14 135/51 H 100 12/09/19 20:00 12/09/19 20:00 12/09/19 20:00 12/09/19 11:09 12/09/19 20:00 Intake & Output 12/08/19 12/09/19 12/10/19 06:59 06:59 06:59 Intake Total 1000 Balance 1000 Weight 54.8 kg General appearance: PRESENT: mild distress - Patient in distress due to pain, dyphagia and dysphonia from significant floor of mouth and tongue edema. Head exam: PRESENT: normocephalic Eye exam: PRESENT: EOMI Ear exam: PRESENT: other - Not performed by [facility] Mouth exam: PRESENT: other - Patient with severe tongue and floor of mouth edema. Full exam difficult due to extent of edema. Teeth exam: PRESENT: edentulous - Patient is edentulous following odontectomies which were performed by general dentist in staged manner spanning 4 weeks to months prior to presentation today.. ABSENT: dental caries, dental tenderness, poor dentation, other Throat exam: PRESENT: other - unable to examine due to tongue edema. Neck exam: PRESENT: tenderness, other - Patient extremely tender to palpation of right submental space region. Respiratory exam: PRESENT: other - Per H&P Cardiovascular exam: PRESENT: other - Per H&P Vascular exam: PRESENT: other - Not performed Breast: PRESENT: Other - Not performed GI/Abdominal exam: PRESENT: other - Not examined by [facility] Rectal exam: PRESENT: deferred Gentrourinary exam: PRESENT: other - Deferred Musculoskeletal exam: PRESENT: ambulatory Neurological exam: PRESENT: oriented to person, oriented to place, oriented to time, oriented to situation Psychiatric exam: PRESENT: anxious - Patient in pain and anxious about intraoral swelling and pain. 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 The appearance of right anterior mandibular cortical rarefaction of the alveolar ridge suggests odontogenic origin. Assessment & Plan - Diagnosis (1) Glossitis Is this a current diagnosis for this admission?: Yes (2) Leukocytosis Qualifiers: Leukocytosis type: unspecified Qualified Code(s): D72.829 - Elevated white blood cell count, unspecified Is this a current diagnosis for this admission?: Yes (3) Ludwigs angina Is this a current diagnosis for this admission?: Yes (4) Type 1 diabetes mellitus Qualifiers: Diabetes mellitus complication status: without complication Qualified Code(s): E10.9 - Type 1 diabetes mellitus without complications Is this a current diagnosis for this admission?: No - Time Time Spent: 30 to 50 Minutes Smoking Cessation Education: 3 to 10 minutes Medications reviewed and adjusted accordingly: Yes Anticipated discharge: Home Anticipated DC Timeframe: within 72 hours Disposition: Guarded disposition due to severe floor of mouth and tongue swelling. Patient requires emergent I&D of right submental and bilateral sublingual space abscesses. - Inpatient Certification Based on my medical assessment, after consideration of the patient's comorbiditi es, presenting symptoms, or acuity I expect that the services needed warrant INPATIENT care.: Yes I certify that my determination is in accordance with my understanding of [facility]'s requirements for reasonable and necessary INPATIENT services [42 CFR 412.3e].: Yes Medical Necessity: Need for Pain Control, Need for IV Antibiotics, Need for Surgery, Risk of Complication if Not Cared For in Hospital Post Hospital Care: D/C Police Chief Documentation - Plan Summary Plan Summary: Patient to go to main or for emergent I&D of right submental, bilateral sublingual space abscesses. Patient will require supportive in house care with IV antibiotics and airway watch.
--- NOTE | 2019-12-09 22:13 | Operative Report ---
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 1ST EDUCATION AND TRAINING MANAGER: None 2ND Frame Welder Cargo Utility Trailers: None ANESTHESIA: GA - Nasal Intubation TISSUE REMOVED OR ALTERED: C&S taken from right sublingual space; Sequestra from anterior mandible COMPLICATIONS: None; patient with continued severe lingual edema postoperatively ESTIMATED BLOOD LOSS: 20ml INTRAOPERATIVE FINDINGS: Positive purulence noted. Severe lingual edema leading to potential airway compromise. PROCEDURE: The patient was taken from the ED to the Operating Room for an emergent I&D of her submental and bilateral sublingual spaces. Care of patient was assumed by the anesthesia team and following the placement of a fresh IV, general anesthesia was reached and the patient was intubated in the right nares without complication. Stable vital signs and proper tube placement were both then verified. The Nasoendotracheal tube was secured and care of the patient was given to the surgical team. The patient was positioned in a stable supine/beach chair position. The patient was prepped and drapped in the standard fashion. A moistened raytec throat pack was placed and reported to the anesthesia team. A 5cc syringe with an 18 g needle was inserted into the right sublingual space and a purulent sample was r emoved for C&S and sent for laboratory review. Attention was then directed to the Anterior Mandibular gingiva and an #15 blade was utilized to make a full thickness mucoperiosteal incision of the mandibular right and left anterior mandibular gingiva in the area of missing teeth #22 and 27. A nine molt periosteal elevator was used to dissect over the lingual side of the mandibular ridge in both areas and enter the bilateral sublingual spaces. A Bhavana hemostat was used to carefully and thoroughly bluntly dissect with a push/spread technique the bilateral sublingual and base of the tongue spaces. Positive purulence was removed from the sublingual spaces and base of tongue region. Copious sterile saline irrigation was then applied to flush the drained spaces. A fresh #15 blade was then utilized to make a 1 centimeter skin incision under the right anterior mandible. Again, a hemostat was used to bluntly dissect from the incision to the inferior border of the mandible and then was carried superiorly, remaining in contact with the mandible and subperiosteally to connect with the previously incised right intra-oral lingual dissection. A isabela drain was then carried from an intra-oral to extra-oral position to allow for a gravity guided port for proper continued drainage of the sublingual and submental spaces. The drain was secured with a single 4.0 silk suture at the skin margin and appropriately trimmed. Sterile saline irrigation was again copiously applied to verify and flush adequately the affected spaces. Finally, liquid bacitracin was used to flush the drain and dissected spaces. Hemostasis was verified and the extra-oral portion of the drain was dressed, tapped and the throat pack was removed and verified with the anesthesia team. It was noted prior to and during the operation that the patient's lingual edema was significant and the surgical and anesthesia teams felt it prudent for the patient to remain intubated post surgically until the airway was determined to be safe for extubation. The patient was transported to the ICU still intubated for supportive airway and medical care. The patient remained stable throughout the transfer process to the ICU.
[2019-12-09] MEDS: DIPHENHYDRAMINE HCL 50 MG/ML VIAL IV SCH (22:18)
[2019-12-09] MEDS: DEXAMETHASONE SOD PHOSPHATE INJ 4 MG/1 ML VIAL IV SCH (22:18)
[2019-12-09] MEDS: FAMOTIDINE INJ/PF 20 MG/2 ML SDV IV SCH (22:18)
[2019-12-09] MEDS ORDERED: INSULIN LISPRO 100 UNIT/ML 3 ML VIAL ONE (22:21)
[2019-12-09] MEDS: INSULIN LISPRO 100 UNIT/ML 3 ML VIAL SUBCUT SCH (22:25)
--- NOTE | 2019-12-09 22:25 | Brief Operative Note ---
BRIEF OPERATIVE REPORT DATE OF SURGERY: 12/09/19 TIME OF SURGERY: 05:30 PREOPERATIVE DIAGNOSIS: Ludwigs Angina POSTOPERATIVE DIAGNOSIS: Same as preop SURGEON: ALBERTO NUNEZ FINDINGS: Submental and bilateral sublingual abscess with purulence COMPLICATIONS: None ESTIMATED BLOOD LOSS: 20ml TISSUE REMOVED OR ALTERED: C&S from right sublingual space; sequestra TECHNICAL PROCEDURE: I&D of submental and bilateral sublingual spaces; Placement of intra to extra oral drain.
[2019-12-10] MEDS: PROPOFOL 1,000 MG/100 ML INFUS..BTL IV PRN ×2 (00:40→08:25)
[2019-12-10] MEDS: FENTANYL CITRATE INJ/PF 100 MCG/2 ML AMPUL IV PRN ×3 (01:28→15:41)
[2019-12-10] MEDS: DIPHENHYDRAMINE HCL 50 MG/ML VIAL IV SCH ×2 (02:23→08:47)
[2019-12-10] MEDS: INSULIN LISPRO 100 UNIT/ML 3 ML VIAL SUBCUT SCH ×4 (05:13→23:55)
[2019-12-10] MEDS: DEXAMETHASONE SOD PHOSPHATE INJ 4 MG/1 ML VIAL IV SCH ×3 (05:59→21:17)
[2019-12-10 07:21] LABS: ANION GAP 10 (5-19); BLOOD UREA NITROGEN 3 mg/dL (7-20); CARBON DIOXIDE 24 mmol/L (22-30); CHLORIDE 102 mmol/L (98-107); GLUCOSE 138 mg/dL (75-110); POTASSIUM 4.1 mmol/L (3.6-5.0)
[2019-12-10] MEDS ORDERED: PHARMACY COMMUNICATION ORDER MC NR (07:45)
--- NOTE | 2019-12-10 08:15 | RADIOLOGY REPORT (SQ) ---
EXAM DESCRIPTION: CHEST SINGLE VIEW IMAGES COMPLETED DATE/TIME: 12/10/2019 5:55 am REASON FOR STUDY: intubated COMPARISON: None. EXAM PARAMETERS: NUMBER OF VIEWS: One view. TECHNIQUE: Single frontal radiographic view of the chest acquired. RADIATION DOSE: NA LIMITATIONS: None. FINDINGS: LUNGS AND PLEURA: Left lung base atelectasis versus consolidation. No significant pleural effusion. No pneumothorax. MEDIASTINUM AND HILAR STRUCTURES: No masses. Contour normal. HEART AND VASCULAR STRUCTURES: Heart normal in size. Normal vasculature. BONES: No acute findings. HARDWARE: Endotracheal tube terminates 2.5 cm cranial to the phill. OTHER: No other significant finding. IMPRESSION: 1. Left lung base atelectasis versus consolidation. 2. Endotracheal tube demonstrating appropriate positioning. TECHNICAL DOCUMENTATION: JOB ID: [id number] 2010 [employer]- All Rights Reserved Reading location - IP/workstation name: [email or web address]
--- NOTE | 2019-12-10 08:17 | PDOC CRITICAL CARE PROG REPORT ---
General Date:: 12/10/19 ICU Day:: 1 Ventilator Day:: 2 Hospital Day:: 2 Resuscitation Status: Full Code Events in the past 12 to 24 Hours:: Went to OR for Griffin's angina. Review of systems relevant to events:: ENT Reason for ICU Addmission:: ludwigs angina admit dx post op intubation due to soft tissue swelling - Medications: Medications reviewed and adjusted accordingly: Yes Vasopressors:: None Sedation:: Diprivan Physical Exam Vital Signs: Temp Pulse Resp BP Pulse Ox 99.5 F 102 H 27 H 153/67 H 100 12/10/19 06:00 12/09/19 21:44 12/10/19 07:00 12/10/19 06:54 12/10/19 07:00 Intake & Output 12/09/19 12/10/19 12/11/19 06:59 06:59 06:59 Intake Total 1063 Output Total 1975 Balance -912 Weight 61.9 kg Weight/Height Weight 61.9 kg Height 4 ft 10.5 in General appearance: PRESENT: no acute distress, cooperative, thin Head exam: PRESENT: atraumatic, normocephalic Eye exam: PRESENT: conjunctiva pink, EOMI, PERRLA. ABSENT: scleral icterus Ear exam: PRESENT: normal external ear exam Mouth exam: PRESENT: moist, tongue midline Neck exam: PRESENT: other - Post-op swelling at op site under R side of mandible still present but improved. ETT cuff leak not checked. Respiratory exam: PRESENT: clear to auscultation gisele. ABSENT: rales, rhonchi, wheezes Cardiovascular exam: PRESENT: RRR. ABSENT: diastolic murmur, rubs, systolic murmur GI/Abdominal exam: PRESENT: normal bowel sounds, soft. ABSENT: distended, guard ing, mass, organolmegaly, rebound, tenderness Rectal exam: PRESENT: deferred Gentrourinary exam: PRESENT: indwelling catheter Extremities exam: PRESENT: full ROM. ABSENT: calf tenderness, clubbing, pedal edema Musculoskeletal exam: PRESENT: normal inspection Neurological exam: PRESENT: alert, altered, awake, oriented to person, oriented to place, CN II-XII grossly intact Psychiatric exam: PRESENT: appropriate affect, normal mood. ABSENT: homicidal ideation, suicidal ideation Skin exam: PRESENT: dry, intact, warm. ABSENT: cyanosis, rash Tubes/Lines: PRESENT: Endotracheal Tube, Nasogastic Tube Laboratory/Radiographs Laboratory Results: 12/10/19 06:47 12/10/19 06:47 12/09/19 12/09/19 12/10/19 12:49 12:49 06:47 WBC 15.5 H Cancelled RBC 5.14 Cancelled Hgb 14.0 Cancelled Hct 41.8 Cancelled MCV 81 Cancelled MCH 27.2 Cancelled MCHC 33.4 Cancelled RDW 14.3 H Cancelled Plt Count 766 H Cancelled Seg Neutrophils % 80.6 H Cancelled Sodium 132.3 L Potassium 4.2 Chloride 96 L Carbon Dioxide 25 Anion Gap 11 BUN 7 Creatinine 0.40 L Est GFR ( Amer) > 60 Glucose 161 H Calcium 9.4 Magnesium Total Bilirubin 0.7 AST 24 Alkaline Phosphatase 203 H Total Protein 7.8 Albumin 4.3 12/10/19 06:47 WBC RBC Hgb Hct MCV MCH MCHC RDW Plt Count Seg Neutrophils % Sodium 136.0 L Potassium 4.1 Chloride 102 Carbon Dioxide 24 Anion Gap 10 BUN 3 L Creatinine 0.37 L Est GFR ( Amer) > 60 Glucose 138 H Calcium 8.0 L Magnesium 1.9 Total Bilirubin AST Alkaline Phosphatase Total Protein Albumin 12/09/19 21:10 CK-MB (CK-2) 1.86 Impressions: Soft Tissue Neck CT 12/09/19 11:28 IMPRESSION: 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 The appearance of right anterior mandibular cortical rarefaction of the alveolar ridge suggests odontogenic origin. EKG: SR, non-specific t-wave changes. No ectopy, ischemia. All labs, radiographs, diagnostic studies and EKGs were personally reviewed: Yes In addition, reports of radiographic and diagnostic studies were read: Yes Assessment and Plan - Diagnosis (1) Airway compromise Is this a current diagnosis for this admission?: Yes Plan: Because of Griffin's angina and surgery her airway is compromised by swelling. This is for airway protection. No lung pathology. (2) Ludwigs angina Is this a current diagnosis for this admission?: Yes Plan: To OR 12/08. POD #1. Keep on levoquin, decadron. (3) Type 1 diabetes mellitus Qualifiers: Diabetes mellitus complication status: without complication Qualified Code(s): E10.9 - Type 1 diabetes mellitus without complications Is this a current diagnosis for this admission?: Yes Plan: Controled. Plan Summary: Start TF, PT to prevent weakness. When extubated discharge home. Critical Time Critical Time (minutes): 35 Level of Care: ICU Anticipated discharge: Home Anticipated DC Timeframe: Other -: 1. The care of a critical patient is a dynamic process. This note is a represe ntative synopsis but static in nature. The timeframe for treatments given in order is not necessarily the actual time these treatments may have been done. 2. This patient requires critical care secondary to ongoing requirements for therapy not offered or safe outside the critical care environment. Transfer to a lower level of care will result in altered life or limb morbidity and mortality. 3. Multidisciplinary rounds completed. 4. ABCDE bundle addressed.
--- NOTE | 2019-12-10 08:20 | PDOC PROGRESS REPORT ---
Subjective Progress Note for:: 12/10/19 Subjective:: Patient awake and able to write note. Was re-assured that her insulin pump and blood sugars were being monitored. She reported no pain. Reason For Visit: GRIFFIN ANGINA Post op day 1 s/p submental and bilateral sublingual space incision and drainage. Physical Exam Vital Signs: Temp Pulse Resp BP Pulse Ox 99.5 F 102 H 27 H 153/67 H 100 12/10/19 06:00 12/09/19 21:44 12/10/19 07:00 12/10/19 06:54 12/10/19 07:00 Intake & Output 12/09/19 12/10/19 12/11/19 06:59 06:59 06:59 Intake Total 1063 Output Total 1975 Balance -912 Weight 61.9 kg General appearance: PRESENT: cooperative - Patient able to ask questions with note pad and pencil., mild distress Head exam: PRESENT: normocephalic Eye exam: PRESENT: EOMI Ear exam: PRESENT: normal external ear exam Mouth exam: PRESENT: moist, other - intral oral drain intact. Floor of mouth mildly softer than post surgically. Tongue mildly softer than post surgical. Floor of mouth and tongue still with significant edema as expected. Naso Endotracheal tube intact with proper placement. Teeth exam: PRESENT: edentulous Throat exam: PRESENT: other - Unable to perform appropriate throat exam due to edema and intubation. Neck exam: PRESENT: tenderness, other - Patient with intact and productive drain exiting right submental neck region. Suture intact. Dressing demonstrates appr opriate drainage. Respiratory exam: PRESENT: unlabored - on ventilator Cardiovascular exam: PRESENT: other - See EKG Pulses: PRESENT: other - deferred to ICU team Vascular exam: PRESENT: normal capillary refill Breast: PRESENT: Other - deferred GI/Abdominal exam: PRESENT: soft Rectal exam: PRESENT: deferred Neurological exam: PRESENT: awake, oriented to place, other - able to ask appropriate questions via note pad and pencil Skin exam: PRESENT: normal color, warm Results Laboratory Results: 12/10/19 06:47 12/10/19 06:47 12/09/19 12/09/19 12/10/19 12:49 12:49 06:47 WBC 15.5 H Cancelled RBC 5.14 Cancelled Hgb 14.0 Cancelled Hct 41.8 Cancelled MCV 81 Cancelled MCH 27.2 Cancelled MCHC 33.4 Cancelled RDW 14.3 H Cancelled Plt Count 766 H Cancelled Seg Neutrophils % 80.6 H Cancelled Sodium 132.3 L Potassium 4.2 Chloride 96 L Carbon Dioxide 25 Anion Gap 11 BUN 7 Creatinine 0.40 L Est GFR ( Amer) > 60 Glucose 161 H Calcium 9.4 Magnesium Total Bilirubin 0.7 AST 24 Alkaline Phosphatase 203 H Total Protein 7.8 Albumin 4.3 12/10/19 06:47 WBC RBC Hgb Hct MCV MCH MCHC RDW Plt Count Seg Neutrophils % Sodium 136.0 L Potassium 4.1 Chloride 102 Carbon Dioxide 24 Anion Gap 10 BUN 3 L Creatinine 0.37 L Est GFR ( Amer) > 60 Glucose 138 H Calcium 8.0 L Magnesium 1.9 Total Bilirubin AST Alkaline Phosphatase Total Protein Albumin 12/09/19 21:10 CK-MB (CK-2) 1.86 Impressions: Soft Tissue Neck CT 12/09/19 11:28 IMPRESSION: 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 The appearance of right anterior mandibular cortical rarefaction of the alveolar ridge suggests odontogenic origin. Assessment & Plan - Diagnosis (1) Glossitis Is this a current diagnosis for this admission?: Yes (2) Leukocytosis Qualifiers: Leukocytosis type: unspecified Qualified Code(s): D72.829 - Elevated white blood cell count, unspecified Is this a current diagnosis for this admission?: Yes (3) Ludwigs angina Is this a current diagnosis for this admission?: Yes (4) Type 1 diabetes mellitus Qualifiers: Diabetes mellitus complication status: without complication Qualified Code(s): E10.9 - Type 1 diabetes mellitus without complications Is this a current diagnosis for this admission?: No - Time Time Spent: 30 to 50 Minutes Critical Time spent with patient: 15-24 minutes Medications reviewed and adjusted accordingly: Yes Anticipated Discharge Disposition: Home, Self Care Anticipated Discharge Timeframe: TBD Disposition: Patient intubated in ICU. Her exam is appropriate considering the seriousness of her infection and being less than 24 hours s/p I&D of submental and bilateral sublingual spaces. There is no evidence of post surgical bleeding and her drains are productive, intact and secure. Patient's floor of mouth demonstrates appropriate post operative edema and does show mild improvement in swelling and softness upon palpation. Patient's tongue demonstrates continued significant edema. There is mild improvement in softness upon palpation and her oral mucosa is moist. The patient is receiving respiratory and medical supportive care from ICU team and presented comfortably in stable condition. She was awake and inquisitive upon my arrival. Overall, the patient is stable on ventilator due to tongue and floor of mouth edema and receiving IV antibiotics and supportive medical care. Her floor of mouth and tongue edema merit continued close observation for return or worsening infection. The surgery did provide strong positive decompression of lesion with good purulent drainage but due to patient status as a type I diabetic and elevated blood sugars, as well as, the anatomic and technical difficulties presented by this level of edema during surgery will remain jenkins ant for her recovery. 1) I agree with Dr. Edouard that patient would benefit from NG tube to receive her normal oral medications. 2) Continue IV antibiotics and await C&S. 3) Continue on vent/intubation and closely observe tongue and floor of mouth swelling for continued improvement. Watch right nares for tissue trauma from Nasal endotracheal tube. (None observed at present.) 4) Would recommend daily CBC even while on steriod therapy to evaluate WBC and platelet counts. 5) Replace neck drain dressing to assist with evaluation of drain production.
[2019-12-10 08:24] LABS: ARTERIAL BLOOD H2CO3 1.01 mmol/L (1.05-1.35); ARTERIAL BLOOD PCO2 33.5 mmHg (35-45); ARTERIAL BLOOD PH 7.46 (7.35-7.45); ARTERIAL BLOOD PO2 170.5 mmHg (80-100)
[2019-12-10 08:25] LABS: ARTERIAL BLOOD BASE EXCESS 0.1 mmol/L; ARTERIAL BLOOD FIO2 40%; ARTERIAL BLOOD HCO3 23.3 mmol/L (20-24); ARTERIAL BLOOD O2 SATURATION 99.2 % (94-98); ARTERIAL BLOOD TOTAL CO2 24.3 mmol/L (21-25)
--- NOTE | 2019-12-10 09:12 | RADIOLOGY REPORT (SQ) ---
EXAM DESCRIPTION: KUB/ABDOMEN (SINGLE VIEW) IMAGES COMPLETED DATE/TIME: 12/10/2019 8:48 am REASON FOR STUDY: Check Placement of NG Tube COMPARISON: None. NUMBER OF VIEWS: One view. TECHNIQUE: Supine radiographic image of the abdomen acquired. LIMITATIONS: Limited field of view. FINDINGS: BOWEL GAS PATTERN: Normal bowel gas pattern. No dilated loops. CALCIFICATIONS: No suspicious calcifications. SOFT TISSUES: No gross mass or suggestion of organomegaly. HARDWARE: L3/4 spinal fusion hardware. Cholecystectomy clips. Enteric tube tip and proximal port pr ojects subdiaphragmatically within the left upper quadrant. BONES: No acute fracture. No worrisome bone lesions. OTHER: No other significant finding. IMPRESSION: Enteric tube tip and proximal port projects subdiaphragmatically within the left upper q uadrant. TECHNICAL DOCUMENTATION: JOB ID: [id number] 2010 [employer]- All Rights Reserved Reading location - IP/workstation name: [email or web address]
--- NOTE | 2019-12-10 09:37 | EKG REPORT ---
SEVERITY:- ABNORMAL ECG - SINUS TACHYCARDIA BORDERLINE R WAVE PROGRESSION, ANTERIOR LEADS NONSPECIFIC T ABNORMALITIES, ANTERIOR LEADS BORDERLINE PROLONGED QT INTERVAL : Confirmed by: Bárbara Adams 10-Dec-2019 09:36:49
--- NOTE | 2019-12-10 09:38 | EKG REPORT ---
SEVERITY:- ABNORMAL ECG - SINUS TACHYCARDIA NONSPECIFIC T ABNORMALITIES, DIFFUSE LEADS BORDERLINE PROLONGED QT INTERVAL : Confirmed by: Bárbara Adams 10-Dec-2019 09:36:54
--- NOTE | 2019-12-10 09:38 | EKG REPORT ---
SEVERITY:- ABNORMAL ECG - SINUS TACHYCARDIA PROBABLE LEFT ATRIAL ABNORMALITY PROBABLE ANTEROSEPTAL INFARCT, AGE INDETERM : Confirmed by: Bárbara Adams 10-Dec-2019 09:37:02
[2019-12-10] MEDS: FAMOTIDINE INJ/PF 20 MG/2 ML SDV IV SCH ×2 (10:29→21:17)
[2019-12-10] MEDS: LEVOFLOXACIN 750 MG/D5W RTU 750 MG/150 ML RTUPB IV SCH (10:30)
[2019-12-10] MEDS ORDERED: DIPHENHYDRAMINE HCL 50 MG/ML VIAL IV PRN (15:00)
[2019-12-10] MEDS: RINGERS SOLUTION,LACTATED 1,000 ML IV PRN (20:35)
[2019-12-11 04:12] LABS: ABSOLUTE BASOPHILS # (AUTO) 0.1 10^3/uL (0.0-0.2); ABSOLUTE LYMPHOCYTES (AUTO) 1.5 10^3/uL (0.5-4.7); ABSOLUTE MONOCYTES (AUTO) 0.9 10^3/uL (0.1-1.4); ABSOLUTE NEUT (AUTO) 9.2 10^3/uL (1.7-8.2); BASOPHILS % (AUTO) 0.5 % (0-2); EOSINOPHILS % (AUTO) 0.1 % (0-6); HEMATOCRIT 38.9 % (36.0-47.0); LYMPHOCYTES % (AUTO) 12.9 % (13-45); MEAN CORPUSCULAR HEMOGLOBIN 26.4 pg (27.0-33.4); MEAN CORPUSCULAR HGB CONC 32.9 g/dL (32.0-36.0); MEAN CORPUSCULAR VOLUME 80 fl (80-97); PLATELET COUNT 756 10^3/uL (150-450); RED BLOOD COUNT 4.85 10^6/uL (3.72-5.28); RED CELL DISTRIBUTION WIDTH 14.4 % (11.5-14.0); SEGMENTED NEUTROPHILS % (AUTO) 78.5 % (42-78); TOTAL CELLS COUNTED % (AUTO) 100 %; WHITE BLOOD COUNT 11.7 10^3/uL (4.0-10.5)
[2019-12-11 04:13] LABS: HEMOGLOBIN 12.8 g/dL (12.0-15.5)
[2019-12-11] MEDS: FENTANYL CITRATE INJ/PF 100 MCG/2 ML AMPUL IV PRN (04:19)
[2019-12-11 04:21] LABS: ALBUMIN 3.3 g/dL (3.5-5.0); ALKALINE PHOSPHATASE 152 U/L (38-126); ANION GAP 9 (5-19); ASPARTATE AMINO TRANSFERASE 20 U/L (14-36); BILIRUBIN,DIRECT 0.2 mg/dL (0.0-0.4); BILIRUBIN,TOTAL 0.4 mg/dL (0.2-1.3); BLOOD UREA NITROGEN 6 mg/dL (7-20); CALCIUM 8.2 mg/dL (8.4-10.2); CARBON DIOXIDE 26 mmol/L (22-30); CHLORIDE 100 mmol/L (98-107); GLUCOSE 155 mg/dL (75-110); POTASSIUM 3.8 mmol/L (3.6-5.0); TOTAL PROTEIN 6.6 g/dL (6.3-8.2)
[2019-12-11 04:35] LABS: ARTERIAL BLOOD BASE EXCESS -1.1 mmol/L; ARTERIAL BLOOD H2CO3 0.64 mmol/L (1.05-1.35); ARTERIAL BLOOD HCO3 19.1 mmol/L (20-24); ARTERIAL BLOOD O2 SATURATION 99.3 % (94-98); ARTERIAL BLOOD PCO2 21.3 mmHg (35-45); ARTERIAL BLOOD PH 7.57 (7.35-7.45); ARTERIAL BLOOD PO2 150.5 mmHg (80-100); ARTERIAL BLOOD TOTAL CO2 19.7 mmol/L (21-25)
[2019-12-11 04:36] LABS: ARTERIAL BLOOD FIO2 30%
[2019-12-11] MEDS: DEXAMETHASONE SOD PHOSPHATE INJ 4 MG/1 ML VIAL IV SCH ×3 (05:44→22:14)
[2019-12-11] MEDS: INSULIN LISPRO 100 UNIT/ML 3 ML VIAL SUBCUT SCH ×3 (05:44→17:48)
--- NOTE | 2019-12-11 08:06 | PDOC PROGRESS REPORT ---
Subjective Progress Note for:: 12/11/19 Subjective:: Patient awake and alert using self suctioning and in good spirits with Naso- endotracheal tube in place. Reason For Visit: GRIFFIN ANGINA Post op day 2 s/p Incision and Drainage of her submental and bilateral sublingual spaces. Physical Exam Vital Signs: Temp Pulse Resp BP Pulse Ox 100.0 F 102 H 11 L 146/69 H 100 12/11/19 05:57 12/11/19 05:57 12/11/19 06:39 12/11/19 06:39 12/11/19 06:39 Intake & Output 12/10/19 12/11/19 12/12/19 06:59 06:59 06:59 Intake Total 1183 1302 Output Total 6306 1590 Balance -912 -288 Weight 61.9 kg 61.5 kg General appearance: PRESENT: no acute distress - Patient using self suction for oral secretions and good spirits. Head exam: PRESENT: normocephalic Eye exam: PRESENT: EOMI Ear exam: PRESENT: normal external ear exam Mouth exam: PRESENT: moist, other - Tongue and floor of mouth edema greatly improved. ICU reports patient is breathing around the naso-endotracheal tube demonstrating significant reduction in base of tongue edema. Teeth exam: PRESENT: edentulous Throat exam: PRESENT: other - Patient breathing and reduction in tongue edema reflect reduction in base of tongue edema but direct visualiztion not possible due to naso-endotracheal tube. Neck exam: PRESENT: tenderness, other - Drain and suture intact. Drain remains productive and will re-eval later this afternoon. Respiratory exam: PRESENT: other - Patient currently intubed on ventilator. Cardiovascular exam: PRESENT: other - patient with mild tachycardia Pulses: PRESENT: other - deferred Vascular exam: PRESENT: normal capillary refill Breast: PRESENT: Other - deferred GI/Abdominal exam: PRESENT: soft Rectal exam: PRESENT: deferred Gentrourinary exam: PRESENT: other - deferred Extremities exam: PRESENT: full ROM Musculoskeletal exam: PRESENT: normal inspection, other Neurological exam: PRESENT: alert, awake, oriented to person, oriented to place, oriented to situation Psychiatric exam: PRESENT: normal mood Skin exam: PRESENT: normal color Results Laboratory Results: 12/11/19 03:59 12/11/19 03:59 08/20/20 08/20/20 08/20/20 06:47 06:47 06:47 WBC Cancelled RBC Cancelled Hgb Cancelled Hct Cancelled MCV Cancelled MCH Cancelled MCHC Cancelled RDW Cancelled Plt Count Cancelled Seg Neutrophils % Cancelled Carbonic Acid 1.01 L HCO3/H2CO3 Ratio 23:1 ABG pH 7.46 H ABG pCO2 33.5 L ABG pO2 170.5 H ABG HCO3 23.3 ABG O2 Saturation 99.2 H ABG Base Excess 0.1 FiO2 40% Sodium 136.0 L Potassium 4.1 Chloride 102 Carbon Dioxide 24 Anion Gap 10 BUN 3 L Creatinine 0.37 L Est GFR ( Amer) > 60 Glucose 138 H Calcium 8.0 L Magnesium 1.9 Total Bilirubin AST Alkaline Phosphatase Total Protein Albumin 12/11/19 12/11/19 12/11/19 03:59 03:59 04:10 WBC 11.7 H RBC 4.85 Hgb 12.8 Hct 38.9 MCV 80 MCH 26.4 L MCHC 32.9 RDW 14.4 H Plt Count 756 H Seg Neutrophils % 78.5 H Carbonic Acid 0.64 L HCO3/H2CO3 Ratio 29:1 ABG pH 7.57 H ABG pCO2 21.3 L ABG pO2 150.5 H ABG HCO3 19.1 L ABG O2 Saturation 99.3 H ABG Base Excess -1.1 FiO2 30% Sodium 135.3 L Potassium 3.8 Chloride 100 Carbon Dioxide 26 Anion Gap 9 BUN 6 L Creatinine 0.44 L Est GFR ( Amer) > 60 Glucose 155 H Calcium 8.2 L Magnesium 2.1 Total Bilirubin 0.4 AST 20 Alkaline Phosphatase 152 H Total Protein 6.6 Albumin 3.3 L 12/09/19 12/10/19 21:10 06:47 CK-MB (CK-2) 1.86 0.88 Impressions: Soft Tissue Neck CT 12/09/19 11:28 IMPRESSION: 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 The appearance of right anterior mandibular cortical rarefaction of the alveolar ridge suggests odontogenic origin. KUB X-Ray 12/10/19 07:38 IMPRESSION: Enteric tube tip and proximal port projects subdiaphragmatically within the left upper quadrant. Assessment & Plan - Diagnosis (1) Glossitis Is this a current diagnosis for this admission?: Yes (2) Leukocytosis Qualifiers: Leukocytosis type: unspecified Qualified Code(s): D72.829 - Elevated white blood cell count, unspecified Is this a current diagnosis for this admission?: Yes (3) Ludwigs angina Is this a current diagnosis for this admission?: Yes (4) Type 1 diabetes mellitus Qualifiers: Diabetes mellitus complication status: without complication Qualified Code(s): E10.9 - Type 1 diabetes mellitus without complications Is this a current diagnosis for this admission?: No - Time Time Spent: 30 to 50 Minutes Critical Time spent with patient: 15-24 minutes Medications reviewed and adjusted accordingly: Yes Anticipated Discharge Disposition: Home, Self Care - When ready sister stated she was arranging family assistance upon D/C Anticipated Discharge Timeframe: within 24 hours Disposition: Post op day 2 s/p I&D of submental and bilateral sublingual abscess. Patient is awake, alert and in good spirits with naso-endotracheal tube in place. Tongue and floor of mouth demonstrate significant improvement in edema. The tongue is soft. The floor of mouth is appropriately tender to palpation. Both remain mildly swollen but appropriate for less than 48 hours post surgical. The patient is breathing around the naso-endotracheal tube which indicates the base of tongue edema has also significantly improved. Her intra to extra oral drain is intact and productive. The reduction in overall edema, a/w and respiratory indicators have made the ICU feel comfortable that extubation can occur this AM. I agree. Plan: 1) Extubation and observation of a/w. 2) If extubation successful and patient tolerates would recommend switch to oral Levofloxacin and PO intake. 3) Encourage ambulation 4) If these are measures are successful and ICU feels comfortable than patient to be considered for discharge per ICU criteria. Recommend: Resume home meds and insulin regimen Medrol Dose pack (5 day) 10 day course of levofloxacin 750mg Hydrocodone/acetaminophen 7.5/300mg viscous lidocaine oropharyngeal 2% chlorhexidine rinse 0.12%
--- NOTE | 2019-12-11 08:19 | RADIOLOGY REPORT (SQ) ---
EXAM DESCRIPTION: KUB/ABDOMEN (SINGLE VIEW) IMAGES COMPLETED DATE/TIME: 12/10/2019 8:13 pm REASON FOR STUDY: ng tube placement COMPARISON: 12/10/2019 NUMBER OF VIEWS: One view. TECHNIQUE: Supine radiographic image of the abdomen acquired. LIMITATIONS: Lower abdomen excluded by collimation. FINDINGS: BOWEL GAS PATTERN: Normal bowel gas pattern. No dilated loops. CALCIFICATIONS: No suspicious calcifications. SOFT TISSUES: No gross mass or suggestion of organomegaly. HARDWARE: Nasoenteric tube tip overlies gastric body. Endotracheal tube tip overlies midthoracic tra klaus. Lower lumbar posterior fusion hardware. Cholecystectomy clips. BONES: No acute fracture. No worrisome bone lesions. OTHER: No other significant finding. IMPRESSION: Nasoenteric tube tip overlies gastric body. TECHNICAL DOCUMENTATION: JOB ID: [id number] 2010 [employer]- All Rights Reserved Reading location - IP/workstation name: [email or web address]
--- NOTE | 2019-12-11 09:05 | RADIOLOGY REPORT (SQ) ---
EXAM DESCRIPTION: CHEST SINGLE VIEW IMAGES COMPLETED DATE/TIME: 12/11/2019 6:20 am REASON FOR STUDY: intubated COMPARISON: 12/10/2019 EXAM PARAMETERS: NUMBER OF VIEWS: One view. TECHNIQUE: Single frontal radiographic view of the chest acquired. RADIATION DOSE: NA LIMITATIONS: None. FINDINGS: LUNGS AND PLEURA: Improved left basilar aeration. No focal consolidation, pleural effusio n or pneumothorax. MEDIASTINUM AND HILAR STRUCTURES: No masses. Contour normal. HEART AND VASCULAR STRUCTURES: Heart normal in size. Normal vasculature. BONES: No acute findings. HARDWARE: Endotracheal tube tip overlies midthoracic trachea. Enteric tube tip below diaphragm but e xcluded by collimation. OTHER: No other significant finding. IMPRESSION: Improved left basilar aeration without other evidence of acute intrathoracic process. Endotracheal tube tip overlies midthoracic trachea. TECHNICAL DOCUMENTATION: JOB ID: [id number] 2010 [employer] All Rights Reserved Reading location - IP/workstation name: [email or web address]
[2019-12-11] MEDS: LEVOFLOXACIN 750 MG/D5W RTU 750 MG/150 ML RTUPB IV SCH (09:53)
[2019-12-11] MEDS: RINGERS SOLUTION,LACTATED 1,000 ML IV PRN (09:57)
--- NOTE | 2019-12-11 16:56 | PDOC PROGRESS REPORT ---
Subjective Progress Note for:: 12/11/19 Subjective:: Patient denies pain. Airway widely patent. Continues to have difficulty swallowing saliva Reason For Visit: GRIFFIN ANGINA Physical Exam Vital Signs: Temp Pulse Resp BP Pulse Ox 99.9 F 108 H 18 133/66 H 99 12/11/19 09:39 12/11/19 09:00 12/11/19 15:00 12/11/19 14:40 12/11/19 15:00 Intake & Output 12/10/19 12/11/19 12/12/19 06:59 06:59 06:59 Intake Total 1183 1302 1000 Output Total 2095 1590 475 Balance -912 -288 525 Weight 61.9 kg 61.5 kg General appearance: PRESENT: no acute distress, cooperative, well-developed, well-nourished Head exam: PRESENT: atraumatic, normocephalic Mouth exam: PRESENT: moist, tongue midline Throat exam: ABSENT: tonsillar erythema, tonsillar exudate Neck exam: PRESENT: other - Site under mandible right of midline with intact dressing. Dressing removed to reveal 1 cm incision with minimal brownish drainage noted on dressing. No overt drainage on exam. Site TTP. Moderate edema and minimal erythema surrounding incision.. ABSENT: JVD Respiratory exam: PRESENT: clear to auscultation gisele, symmetrical, unlabored. ABSENT: accessory muscle use Cardiovascular exam: PRESENT: RRR, +S1, +S2 Pulses: PRESENT: normal carotid pulses, +1 pedal pulses bilateral Vascular exam: PRESENT: normal capillary refill GI/Abdominal exam: PRESENT: normal bowel sounds, soft. ABSENT: distended, tenderness Rectal exam: PRESENT: deferred Extremities exam: ABSENT: calf tenderness, pedal edema Neurological exam: PRESENT: alert, awake, oriented to person, oriented to place, oriented to time, oriented to situation, CN II-XII grossly intact. ABSENT: motor sensory deficit Psychiatric exam: PRESENT: appropriate affect, normal mood. ABSENT: agitated, anxious Skin exam: PRESENT: dry, normal color, warm Results Laboratory Results: 12/11/19 03:59 12/11/19 03:59 12/11/19 12/11/19 12/11/19 03:59 03:59 04:10 WBC 11.7 H RBC 4.85 Hgb 12.8 Hct 38.9 MCV 80 MCH 26.4 L MCHC 32.9 RDW 14.4 H Plt Count 756 H Seg Neutrophils % 78.5 H Carbonic Acid 0.64 L HCO3/H2CO3 Ratio 29:1 ABG pH 7.57 H ABG pCO2 21.3 L ABG pO2 150.5 H ABG HCO3 19.1 L ABG O2 Saturation 99.3 H ABG Base Excess -1.1 FiO2 30% Sodium 135.3 L Potassium 3.8 Chloride 100 Carbon Dioxide 26 Anion Gap 9 BUN 6 L Creatinine 0.44 L Est GFR ( Amer) > 60 Glucose 155 H Calcium 8.2 L Magnesium 2.1 Total Bilirubin 0.4 AST 20 Alkaline Phosphatase 152 H Total Protein 6.6 Albumin 3.3 L 12/09/19 12/10/19 21:10 06:47 CK-MB (CK-2) 1.86 0.88 Impressions: Soft Tissue Neck CT 12/09/19 11:28 IMPRESSION: 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 The appearance of right anterior mandibular cortical rarefaction of the alveolar ridge suggests odontogenic origin. KUB X-Ray 12/10/19 07:38 IMPRESSION: Enteric tube tip and proximal port projects subdiaphragmatically within the left upper quadrant. Chest X-Ray 12/11/19 06:00 IMPRESSION: Improved left basilar aeration without other evidence of acute intrathoracic process. Endotracheal tube tip overlies midthoracic trachea. Assessment and Plan - Diagnosis (1) Ludwigs angina Is this a current diagnosis for this admission?: Yes Plan: S/P I&D of submental and bilateral sublingual abscesses Wound culture 12/09/2019: Streptococcus Salivarius Sensitivities reviewed Continue levofloxacin 750 mg IV daily (2) Glossitis Is this a current diagnosis for this admission?: Yes Plan: Patient continues to have glossal edema Continue dexamethasone 4 mg IV every 8 hours Keep n.p.o. Patient has NG tube, will maintain in the event that she were to need enteric nutritional support (3) Sepsis Qualifiers: Sepsis type: Streptococcus, other Sepsis acute organ dysfunction status: without acute organ dysfunction Qualified Code(s): A40.8 - Other streptococcal sepsis Is this a current diagnosis for this admission?: Yes Plan: Sepsis as evidenced by fever/tachypnea/leukocytosis Check lactic acid in a.m. Antibiotics as noted above - Plan Summary Summary: Of note patient apparently had several teeth extractions starting in May although she says the last time was about 4 months ago. She started having swelling more recently but clearly her infection is likely related to her dentition or lack thereof. She received steroids as well as Levaquin and morphine in the emergency room - Time Time Spent with patient: 25-34 minutes Medications reviewed and adjusted accordingly: Yes Anticipated Discharge Disposition: Home, Self Care Anticipated Discharge Timeframe: TBD
[2019-12-11] MEDS ORDERED: MORPHINE SULFATE 10 MG/ML INJ IV PRN (17:49)
[2019-12-12 05:48] LABS: ABSOLUTE LYMPHOCYTES (AUTO) 1.5 10^3/uL (0.5-4.7); ABSOLUTE MONOCYTES (AUTO) 0.7 10^3/uL (0.1-1.4); ABSOLUTE NEUT (AUTO) 8.7 10^3/uL (1.7-8.2); BASOPHILS % (AUTO) 0.4 % (0-2); EOSINOPHILS % (AUTO) 0.1 % (0-6); HEMATOCRIT 34.9 % (36.0-47.0); HEMOGLOBIN 11.7 g/dL (12.0-15.5); LYMPHOCYTES % (AUTO) 14.1 % (13-45); MEAN CORPUSCULAR HEMOGLOBIN 26.9 pg (27.0-33.4); MEAN CORPUSCULAR HGB CONC 33.4 g/dL (32.0-36.0); MEAN CORPUSCULAR VOLUME 80 fl (80-97); MONOCYTES % (AUTO) 6.5 % (3-13); PLATELET COUNT 716 10^3/uL (150-450); RED BLOOD COUNT 4.34 10^6/uL (3.72-5.28); SEGMENTED NEUTROPHILS % (AUTO) 78.9 % (42-78); TOTAL CELLS COUNTED % (AUTO) 100 %
[2019-12-12 06:03] LABS: ANION GAP 11 (5-19); BLOOD UREA NITROGEN 9 mg/dL (7-20); CALCIUM 8.2 mg/dL (8.4-10.2); CARBON DIOXIDE 23 mmol/L (22-30); CHLORIDE 100 mmol/L (98-107); GLUCOSE 193 mg/dL (75-110); POTASSIUM 4.4 mmol/L (3.6-5.0)
[2019-12-12] MEDS: DEXAMETHASONE SOD PHOSPHATE INJ 4 MG/1 ML VIAL IV SCH ×3 (06:14→21:34)
[2019-12-12] MEDS: INSULIN LISPRO 100 UNIT/ML 3 ML VIAL SUBCUT SCH ×3 (06:46→18:00)
[2019-12-12] MEDS: LEVOFLOXACIN 750 MG/D5W RTU 750 MG/150 ML RTUPB IV SCH (09:18)
--- NOTE | 2019-12-12 12:05 | PDOC PROGRESS REPORT ---
Subjective Progress Note for:: 12/12/19 Subjective:: Patient states that her throat is irritated from her NG tube. She also states that she feels she is swallowing better however the nurse reports that the patient did cough this morning with liquids Reason For Visit: GRIFFIN ANGINA Physical Exam Vital Signs: Temp Pulse Resp BP Pulse Ox 98.0 F 102 H 18 150/68 H 97 12/12/19 08:04 12/12/19 08:04 12/12/19 08:04 12/12/19 08:04 12/12/19 08:04 Intake & Output 12/11/19 12/12/19 12/13/19 06:59 06:59 06:59 Intake Total 1302 1150 Output Total 1590 475 Balance -288 675 Weight 61.5 kg 60 kg General appearance: PRESENT: no acute distress, cooperative, well-developed, well-nourished Head exam: PRESENT: atraumatic, normocephalic Eye exam: PRESENT: conjunctiva pink. ABSENT: scleral icterus Mouth exam: PRESENT: moist, tongue midline Respiratory exam: PRESENT: clear to auscultation gisele, symmetrical, unlabored. ABSENT: accessory muscle use Cardiovascular exam: PRESENT: RRR, +S1, +S2 Pulses: PRESENT: normal radial pulses, +1 pedal pulses bilateral GI/Abdominal exam: PRESENT: normal bowel sounds, soft. ABSENT: distended, tenderness Rectal exam: PRESENT: deferred Extremities exam: ABSENT: calf tenderness, pedal edema Musculoskeletal exam: PRESENT: ambulatory Neurological exam: PRESENT: alert, awake, oriented to person, oriented to place, oriented to time, oriented to situation, CN II-XII grossly intact. ABSENT: motor sensory deficit Psychiatric exam: PRESENT: appropriate affect, normal mood. ABSENT: agitated, anxious Skin exam: PRESENT: dry, normal color, warm Results Laboratory Results: 12/12/19 05:10 12/12/19 05:10 12/12/19 12/12/19 12/12/19 05:10 05:10 05:10 WBC 11.0 H RBC 4.34 Hgb 11.7 L Hct 34.9 L MCV 80 MCH 26.9 L MCHC 33.4 RDW 14.0 Plt Count 716 H Seg Neutrophils % 78.9 H Sodium 133.6 L Potassium 4.4 Chloride 100 Carbon Dioxide 23 Anion Gap 11 BUN 9 Creatinine 0.43 L Est GFR ( Amer) > 60 Glucose 193 H Lactic Acid 0.9 Calcium 8.2 L 12/09/19 12/10/19 21:10 06:47 CK-MB (CK-2) 1.86 0.88 Impressions: Soft Tissue Neck CT 12/09/19 11:28 IMPRESSION: 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 The appearance of right anterior mandibular cortical rarefaction of the alveolar ridge suggests odontogenic origin. KUB X-Ray 12/10/19 07:38 IMPRESSION: Enteric tube tip and proximal port projects subdiaphragmatically within the left upper quadrant. Chest X-Ray 12/11/19 06:00 IMPRESSION: Improved left basilar aeration without other evidence of acute intrathoracic process. Endotracheal tube tip overlies midthoracic trachea. Assessment and Plan - Diagnosis (1) Ludwigs angina Is this a current diagnosis for this admission?: Yes Plan: S/P I&D of submental and bilateral sublingual abscesses Wound culture 12/09/2019: Streptococcus Salivarius Sensitivities reviewed Continue levofloxacin 750 mg IV daily (2) Glossitis Is this a current diagnosis for this admission?: Yes Plan: Patient continues to have glossal edema Continue dexamethasone 4 mg IV every 8 hours Keep n.p.o. Patient's NG tube is extremely irritating and it is likely that this is contributing to her dysphagia, will remove (3) Dysphagia Is this a current diagnosis for this admission?: Yes Plan: According to nurse patient coughed/choked on liquids this a.m. Keep n.p.o. for now, reassess swallow once NGT removed (4) Sepsis Qualifiers: Sepsis type: Streptococcus, other Sepsis acute organ dysfunction status: without acute organ dysfunction Qualified Code(s): A40.8 - Other streptococcal sepsis Is this a current diagnosis for this admission?: Yes Plan: Sepsis as evidenced by fever/tachypnea/leukocytosis Lactic acid 0.9 WBC slowly trending down No longer tachypneic Patient afebrile and nontoxic in appearance Antibiotics as noted above (5) Type 1 diabetes mellitus Qualifiers: Diabetes mellitus complication status: without complication Qualified Code(s): E10.9 - Type 1 diabetes mellitus without complications Is this a current diagnosis for this admission?: No Plan: Continue insulin pump, adjustments per patient routine Reasonable glucose control and patient is fluent with her insulin pump - Plan Summary Summary: Of note patient apparently had several teeth extractions starting in May although she says the last time was about 4 months ago. She started having swelling more recently. - Time Time Spent with patient: 15-24 minutes Anticipated Discharge Disposition: Home, Self Care Anticipated Discharge Timeframe: within 24 hours
--- NOTE | 2019-12-12 14:08 | PDOC PROGRESS REPORT ---
Subjective Progress Note for:: 12/12/19 Reason For Visit: GRIFFIN ANGINA Follow up s/p I&D of submental and bilateral sublingual space abscesses. Physical Exam Vital Signs: Temp Pulse Resp BP Pulse Ox 98.0 F 102 H 18 150/68 H 97 12/12/19 10:00 12/12/19 08:04 12/12/19 08:04 12/12/19 08:04 12/12/19 08:04 Intake & Output 12/11/19 12/12/19 12/13/19 06:59 06:59 06:59 Intake Total 1302 1150 0 Output Total 1590 475 Balance -288 675 0 Weight 61.5 kg 60 kg General appearance: PRESENT: no acute distress Head exam: PRESENT: atraumatic, normocephalic Eye exam: PRESENT: EOMI Ear exam: PRESENT: normal external ear exam Mouth exam: PRESENT: moist, other - Tongue edema continues resolution. Patient now feeling better and noticing alveolar sharp edges from previous extractions. These areas are unrelated to her I&D and current treatment. Teeth exam: PRESENT: edentulous Throat exam: PRESENT: other - Patient has soreness of posterior orapharynx from Naso-endotracheal tube. Neck exam: PRESENT: other - Tenderness (appropriate) at previous drain site. Results Laboratory Results: 12/12/19 05:10 12/12/19 05:10 12/12/19 12/12/19 12/12/19 05:10 05:10 05:10 WBC 11.0 H RBC 4.34 Hgb 11.7 L Hct 34.9 L MCV 80 MCH 26.9 L MCHC 33.4 RDW 14.0 Plt Count 716 H Seg Neutrophils % 78.9 H Sodium 133.6 L Potassium 4.4 Chloride 100 Carbon Dioxide 23 Anion Gap 11 BUN 9 Creatinine 0.43 L Est GFR ( Amer) > 60 Glucose 193 H Lactic Acid 0.9 Calcium 8.2 L 12/09/19 17:53 Mandible (Surgical) Gram Stain - Final 12/09/19 12/10/19 21:10 06:47 CK-MB (CK-2) 1.86 0.88 Impressions: Soft Tissue Neck CT 12/09/19 11:28 IMPRESSION: 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 The appearance of right anterior mandibular cortical rarefaction of the alveolar ridge suggests odontogenic origin. KUB X-Ray 12/10/19 07:38 IMPRESSION: Enteric tube tip and proximal port projects subdiaphragmatically within the left upper quadrant. Chest X-Ray 12/11/19 06:00 IMPRESSION: Improved left basilar aeration without other evidence of acute intrathoracic process. Endotracheal tube tip overlies midthoracic trachea. Assessment & Plan - Diagnosis (1) Glossitis Is this a current diagnosis for this admission?: Yes (2) Leukocytosis Qualifiers: Leukocytosis type: unspecified Qualified Code(s): D72.829 - Elevated white blood cell count, unspecified Is this a current diagnosis for this admission?: Yes (3) Ludwigs angina Is this a current diagnosis for this admission?: Yes (4) Type 1 diabetes mellitus Qualifiers: Diabetes mellitus complication status: without complication Qualified Code(s): E10.9 - Type 1 diabetes mellitus without complications Is this a current diagnosis for this admission?: No - Time Time Spent: 30 to 50 Minutes Critical Time spent with patient: Less than 15 minutes Medications reviewed and adjusted accordingly: Yes Anticipated Discharge Disposition: Home, Self Care Anticipated Discharge Timeframe: within 48 hours Disposition: Patient continues to demonstrate overall improvement. Awaiting improvement in swallow function. Will await medical recommendation on D/C. If patient improvement continues: Post op med recommendations as mentioned in yesterdays progress note. Follow up with [facility] on Saturday @ 0830, [address] , . Will continue to follow.
[2019-12-12] MEDS: RINGERS SOLUTION,LACTATED 1,000 ML IV PRN (19:00)
[2019-12-12] MEDS ORDERED: DULOXETINE HCL 30 MG CAPSULE.DR PO ONE (21:30)
[2019-12-12] MEDS ORDERED: SIMVASTATIN 40 MG TABLET NG ONE (22:00)
[2019-12-13] MEDS: DEXAMETHASONE SOD PHOSPHATE INJ 4 MG/1 ML VIAL IV SCH (05:51)
[2019-12-13] MEDS: LEVOTHYROXINE SODIUM 0.088 MG TABLET NG SCH (06:19)
[2019-12-13] MEDS: HYDROCODONE/ACETAMINOPHEN 5-325 MG TABLET PO PRN ×4 (06:19→23:38)
[2019-12-13] MEDS: INSULIN LISPRO 100 UNIT/ML 3 ML VIAL SUBCUT SCH ×4 (06:20→23:45)
[2019-12-13] MEDS: SIMVASTATIN 40 MG TABLET NG SCH (09:53)
[2019-12-13] MEDS ORDERED: DULOXETINE HCL 30 MG CAPSULE.DR PO SCH ×2 (10:00→22:00)
[2019-12-13] MEDS ORDERED: LEVOFLOXACIN 750 MG TABLET PO SCH (13:00)
[2019-12-13] MEDS: DEXAMETHASONE 4 MG TABLET PO SCH ×2 (15:00→21:29)
--- NOTE | 2019-12-13 15:14 | PDOC PROGRESS REPORT ---
Subjective Progress Note for:: 12/13/19 Subjective:: Patient reports that her swallowing is significantly improved however she still feels as if her tongue is swollen and she is having intermittent pain Reason For Visit: GRIFFIN ANGINA Physical Exam Vital Signs: Temp Pulse Resp BP Pulse Ox 98.1 F 75 17 135/55 H 99 12/13/19 11:21 12/13/19 11:21 12/13/19 11:21 12/13/19 11:21 12/13/19 11:21 Intake & Output 12/12/19 12/13/19 12/14/19 06:59 06:59 06:59 Intake Total 2150 1190 Output Total 475 Balance 1675 1190 Weight 60 kg 60 kg 60 kg General appearance: PRESENT: no acute distress, cooperative, well-developed, well-nourished Head exam: PRESENT: atraumatic Eye exam: PRESENT: conjunctiva pink. ABSENT: scleral icterus Mouth exam: PRESENT: moist, tongue midline, other - Continues to have edematous and erythematous tongue. Sublingual pustule noted just left of frenulum Neck exam: ABSENT: JVD Respiratory exam: PRESENT: clear to auscultation gisele, symmetrical, unlabored. ABSENT: accessory muscle use Cardiovascular exam: PRESENT: RRR, +S1, +S2 Pulses: PRESENT: normal carotid pulses, +1 pedal pulses bilateral Vascular exam: PRESENT: normal capillary refill GI/Abdominal exam: PRESENT: normal bowel sounds, soft. ABSENT: distended, tenderness Rectal exam: PRESENT: deferred Extremities exam: ABSENT: calf tenderness, pedal edema Musculoskeletal exam: PRESENT: ambulatory Neurological exam: PRESENT: alert, awake, oriented to person, oriented to place, oriented to time, oriented to situation, CN II-XII grossly intact. ABSENT: motor sensory deficit Psychiatric exam: PRESENT: appropriate affect, normal mood. ABSENT: agitated, anxious Skin exam: PRESENT: dry, normal color, warm - Edema under mandible. Dressings C/D/I Results Laboratory Results: 12/12/19 05:10 12/12/19 05:10 12/09/19 17:53 Mandible (Surgical) Gram Stain - Final 12/09/19 17:53 Mandible (Surgical) Wound Culture - Final Streptococcus Salivarius Strep Mitis/Oralis Grp Bacteroides Fragilis Group 12/09/19 12/10/19 21:10 06:47 CK-MB (CK-2) 1.86 0.88 Impressions: Soft Tissue Neck CT 12/09/19 11:28 IMPRESSION: 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 The appearance of right anterior mandibular cortical rarefaction of the alveolar ridge suggests odontogenic origin. KUB X-Ray 12/10/19 07:38 IMPRESSION: Enteric tube tip and proximal port projects subdiaphragmatically within the left upper quadrant. Chest X-Ray 12/11/19 06:00 IMPRESSION: Improved left basilar aeration without other evidence of acute intrathoracic process. Endotracheal tube tip overlies midthoracic trachea. Assessment and Plan - Diagnosis (1) Ludwigs angina Is this a current diagnosis for this admission?: Yes Plan: S/P I&D of submental and bilateral sublingual abscesses Wound culture 12/09/2019: Streptococcus Salivarius Blood cultures 12/09/2019: NG at 72 hours Sensitivities reviewed Patient lost her IV and is extremely edematous and staff is having difficulty replacing IV Continue levofloxacin but changed to 750 mg p.o. daily (2) Glossitis Is this a current diagnosis for this admission?: Yes Plan: Patient continues to have glossal edema Continue dexamethasone changed to 4 mg p.o. every 8 hours Patient passed bedside swallow evaluation Patient tolerated clears and is now tolerating full liquid diet (3) Dysphagia Is this a current diagnosis for this admission?: Yes Plan: Resolved Patient does experience some pain with swallowing Patient is having issues with glucose control on full liquid diet given the dietary options Change to mechanical soft ADA diet (4) Sepsis Qualifiers: Sepsis type: Streptococcus, other Sepsis acute organ dysfunction status: without acute organ dysfunction Qualified Code(s): A40.8 - Other streptococcal sepsis Is this a current diagnosis for this admission?: Yes Plan: Sepsis as evidenced by fever/tachypnea/leukocytosis Fever and tachycardia resolved Patient is nontoxic in appearance Lactic acid 0.9 Antibiotics as noted above Recheck CBC in a.m. (5) Type 1 diabetes mellitus Qualifiers: Diabetes mellitus complication status: without complication Qualified Code(s): E10.9 - Type 1 diabetes mellitus without complications Is this a current diagnosis for this admission?: No Plan: Continue insulin pump, adjustments per patient routine Reasonable glucose control and patient is fluent with her insulin pump Change diet to carb controlled diet to facilitate better glucose control - Plan Summary Summary: Of note patient apparently had several teeth extractions starting in May although she says the last time was about 4 months ago. She started having swelling more recently. - Time Time Spent with patient: 15-24 minutes Medications reviewed and adjusted accordingly: Yes Anticipated Discharge Disposition: Home, Self Care Anticipated Discharge Timeframe: within 24 hours
[2019-12-14] MEDS: INSULIN LISPRO 100 UNIT/ML 3 ML VIAL SUBCUT SCH (06:16)
[2019-12-14] MEDS: DEXAMETHASONE 4 MG TABLET PO SCH (06:17)
[2019-12-14] MEDS: LEVOTHYROXINE SODIUM 0.088 MG TABLET NG SCH (06:17)
[2019-12-14] MEDS: HYDROCODONE/ACETAMINOPHEN 5-325 MG TABLET PO PRN (06:27)
[2019-12-14 07:06] LABS: ABSOLUTE LYMPHOCYTES (AUTO) 1.7 10^3/uL (0.5-4.7); ABSOLUTE MONOCYTES (AUTO) 0.7 10^3/uL (0.1-1.4); ABSOLUTE NEUT (AUTO) 7.6 10^3/uL (1.7-8.2); BASOPHILS % (AUTO) 0.5 % (0-2); EOSINOPHILS % (AUTO) 0.2 % (0-6); HEMATOCRIT 37.6 % (36.0-47.0); HEMOGLOBIN 12.5 g/dL (12.0-15.5); LYMPHOCYTES % (AUTO) 16.8 % (13-45); MEAN CORPUSCULAR HEMOGLOBIN 26.6 pg (27.0-33.4); MEAN CORPUSCULAR HGB CONC 33.2 g/dL (32.0-36.0); MEAN CORPUSCULAR VOLUME 80 fl (80-97); MONOCYTES % (AUTO) 7.1 % (3-13); PLATELET COUNT 714 10^3/uL (150-450); RED BLOOD COUNT 4.68 10^6/uL (3.72-5.28); RED CELL DISTRIBUTION WIDTH 13.8 % (11.5-14.0); SEGMENTED NEUTROPHILS % (AUTO) 75.4 % (42-78); TOTAL CELLS COUNTED % (AUTO) 100 %; WHITE BLOOD COUNT 10.1 10^3/uL (4.0-10.5)
--- NOTE | 2019-12-14 09:53 | PDOC DISCHARGE SUMMARY ---
Impression - Admit/DC Date/PCP Admission Date/Primary Care Provider: 12/09/19 16:28 ZACHARY BETANCOURT MD Discharge Date: 12/14/19 - Discharge Diagnosis (1) Ludwigs angina Is this a current diagnosis for this admission?: Yes (2) Glossitis Is this a current diagnosis for this admission?: Yes (3) Dysphagia Is this a current diagnosis for this admission?: Yes (4) Sepsis Is this a current diagnosis for this admission?: Yes (5) Type 1 diabetes mellitus Is this a current diagnosis for this admission?: No - Assessment Summary: Of note patient apparently had several teeth extractions starting in May although she says the last time was about 4 months ago. She started having swelling more recently. - Additional Information Resuscitation Status: Full Code Discharge Diet: Other (Comments) - Mechanical soft diet Discharge Activity: Activity As Tolerated Referrals: ZACHARY BETANCOURT MD [Primary Care Provider] - 12/25/19 11:40 am (Please bring all discharge paperwork to the appointment. Thank you and have a great day!) Prescriptions: Dexamethasone [Decadron 4 mg Tablet] 4 mg PO ASDIR #7 tablet Levofloxacin [Levaquin 750 mg Tablet] 750 mg PO DAILY #8 tablet Home Medications: Chlorhexidine Gluconate [Paroex] 15 ml MM TID #473 ml 11/30/19 Butalb/Acetaminophen/Caffeine [Fioricet (50-325-40 mg) Tablet] 2 tab PO Q4HP PRN 12/09/19 Desipramine HCl [Norpramin 50 mg Tablet] 150 mg PO QHS 12/09/19 Duloxetine HCl [Cymbalta] 60 mg PO DAILY 12/09/19 Insulin Aspart [Novolog] 30 unit SQ DAILY 12/09/19 Levothyroxine Sodium [Synthroid 0.088 mg Tablet] 88 mcg PO DAILY 12/09/19 Meloxicam [Mobic 7.5 mg Tablet] 7.5 mg PO DAILY 12/09/19 Simvastatin [Zocor 40 mg Tablet] 40 mg PO DAILY 12/09/19 Tramadol HCl [Ultram 50 mg Tablet] 50 mg PO Q6HP PRN 12/09/19 Dexamethasone [Decadron 4 mg Tablet] 4 mg PO ASDIR #7 tablet 12/14/19 Levofloxacin [Levaquin 750 mg Tablet] 750 mg PO DAILY #8 tablet 12/14/19 Metronidazole [Flagyl] 500 mg PO Q8H #30 tablet 12/14/19 History of Present Illiness History of Present Illness: JERSON BRAND is a 64 year old female with PMH significant for DM I (on insulin pump), hypothyroidism, dyslipidemia, arthritis, and depression who presented to the ED with complaints of difficulty swallowing as well as neck swelling and sore throat. Additionally, she had symptoms of drooling, difficulty speaking and swelling of her tongue. The ED she was given intravenous steroids and Levaquin. A CT of the neck revealed a constellation of findings consistent with Ludewig's angina. She had a 3.3 x 2.3 x 3.7 cm sublingual abscess with the appearance of right anterior mandibular cortical rarefaction of the alveolar ridge suggestive of odontogenic origin. Hospitalist consultation was requested to admit the patient for further evaluation and treatment. Hospital Course Hospital Course: 12/09/2019 patient underwent incision and drainage of the submental and bilateral sublingual space abscesses. She returned to the intensive care unit intubated nasally where she remained until the time of extubation. On 12/11/2019 she was transferred to the floor and return to the hospitalist service and remained there until the time of discharge. Over subsequent days the patient's oral swelling improved, her nasogastric tube was removed, and she was started on a clear liquid diet which was ultimately advanced to a soft diet. Surgical cultures ultimately revealed Streptococcus Salivarius, Streptococcus Mitis/Oralis group, and Bacteroides Fragilis. Throughout the patient's hospitalization she remained on levofloxacin 750 mg daily, this was initially IV and transition to p.o. On the day of discharge final cultures were available with updated sensitivities. The Streptococcus Salivarius was sensitive to levofloxacin. The lab was unable to provide sensitivities for Streptococcus Mitis 2/2 insufficient growth in the susceptibility panel. The Bacteroides Fragilis group was sensitive to metronidazole. The patient was discharged home on levofloxacin and Flagyl. Physical Exam Vital Signs: Temp Pulse Resp BP Pulse Ox 98.2 F 91 17 115/49 L 100 12/13/19 23:31 12/13/19 23:31 12/13/19 23:31 12/13/19 23:31 12/13/19 23:31 Intake & Output 12/13/19 12/14/19 12/15/19 06:59 06:59 06:59 Intake Total 1190 1730 Balance 1190 1730 Weight 60 kg 60 kg General appearance: PRESENT: no acute distress, cooperative, well-developed, well-nourished Head exam: PRESENT: atraumatic Eye exam: PRESENT: conjunctiva pink. ABSENT: scleral icterus Mouth exam: PRESENT: moist, tongue midline, other - Almost complete resolution of glossal edema. Minimal edema noted sublingually. Prior noted questionable sublingual pustule lateral to frenulum no longer observed Neck exam: ABSENT: JVD Respiratory exam: PRESENT: clear to auscultation gisele, symmetrical, unlabored. ABSENT: accessory muscle use Cardiovascular exam: PRESENT: RRR, +S1, +S2 Pulses: PRESENT: normal carotid pulses, normal radial pulses, +1 pedal pulses bilateral Vascular exam: PRESENT: normal capillary refill GI/Abdominal exam: PRESENT: normal bowel sounds, soft. ABSENT: distended, tenderness Rectal exam: PRESENT: deferred Extremities exam: ABSENT: calf tenderness, pedal edema Musculoskeletal exam: PRESENT: ambulatory Neurological exam: PRESENT: alert, awake, oriented to person, oriented to place, oriented to time, oriented to situation, CN II-XII grossly intact. ABSENT: motor sensory deficit Psychiatric exam: PRESENT: appropriate affect, normal mood. ABSENT: agitated, anxious Skin exam: PRESENT: dry, normal color, warm Results Laboratory Results: WBC 10.1 10^3/uL (4.0-10.5) 12/14/19 06:15 RBC 4.68 10^6/uL (3.72-5.28) 12/14/19 06:15 Hgb 12.5 g/dL (12.0-15.5) 12/14/19 06:15 Hct 37.6 % (36.0-47.0) 12/14/19 06:15 MCV 80 fl (80-97) 12/14/19 06:15 MCH 26.6 pg (27.0-33.4) L 12/14/19 06:15 MCHC 33.2 g/dL (32.0-36.0) 12/14/19 06:15 RDW 13.8 % (11.5-14.0) 12/14/19 06:15 Plt Count 714 10^3/uL (150-450) H 12/14/19 06:15 Lymph % (Auto) 16.8 % (13-45) 12/14/19 06:15 Mclean % (Auto) 7.1 % (3-13) 12/14/19 06:15 Eos % (Auto) 0.2 % (0-6) 12/14/19 06:15 Baso % (Auto) 0.5 % (0-2) 12/14/19 06:15 Absolute Neuts (auto) 7.6 10^3/uL (1.7-8.2) 12/14/19 06:15 Absolute Lymphs (auto) 1.7 10^3/uL (0.5-4.7) 12/14/19 06:15 Absolute Monos (auto) 0.7 10^3/uL (0.1-1.4) 12/14/19 06:15 Absolute Eos (auto) 0.0 10^3/uL (0.0-0.6) 12/14/19 06:15 Absolute Basos (auto) 0.0 10^3/uL (0.0-0.2) 12/14/19 06:15 Seg Neutrophils % 75.4 % (42-78) 12/14/19 06:15 Platelet Estimate Cancelled 12/10/19 06:47 Carbonic Acid 0.64 mmol/L (1.05-1.35) L 12/11/19 04:10 HCO3/H2CO3 Ratio 29:1 12/11/19 04:10 ABG pH 7.57 (7.35-7.45) H 12/11/19 04:10 ABG pCO2 21.3 mmHg (35-45) L 12/11/19 04:10 ABG pO2 150.5 mmHg (80-100) H 12/11/19 04:10 ABG HCO3 19.1 mmol/L (20-24) L 12/11/19 04:10 ABG Total CO2 19.7 mmol/L (21-25) L 12/11/19 04:10 ABG O2 Saturation 99.3 % (94-98) H 12/11/19 04:10 ABG Base Excess -1.1 mmol/L 12/11/19 04:10 FiO2 30% 12/11/19 04:10 Sodium 133.6 mmol/L (137-145) L 12/12/19 05:10 Potassium 4.4 mmol/L (3.6-5.0) 12/12/19 05:10 Chloride 100 mmol/L (98-107) 12/12/19 05:10 Carbon Dioxide 23 mmol/L (22-30) 12/12/19 05:10 Anion Gap 11 (5-19) 12/12/19 05:10 BUN 9 mg/dL (7-20) 12/12/19 05:10 Creatinine 0.43 mg/dL (0.52-1.25) L 12/12/19 05:10 Est GFR ( Amer) > 60 (>60) 12/12/19 05:10 Est GFR (MDRD) Non-Af > 60 (>60) 12/12/19 05:10 Glucose 193 mg/dL (75-110) H 12/12/19 05:10 POC Glucose 214 mg/dL (70-110) H 12/14/19 06:16 Lactic Acid 0.9 mmol/L (0.7-2.1) 12/12/19 05:10 Calcium 8.2 mg/dL (8.4-10.2) L 12/12/19 05:10 Magnesium 2.1 mg/dL (1.6-2.3) 12/11/19 03:59 Total Bilirubin 0.4 mg/dL (0.2-1.3) 12/11/19 03:59 Direct Bilirubin 0.2 mg/dL (0.0-0.4) 12/11/19 03:59 Neonat Total Bilirubin Not Reportable 12/11/19 03:59 Neonat Direct Bilirubin Not Reportable 12/11/19 03:59 Neonat Indirect Bili Not Reportable 12/11/19 03:59 AST 20 U/L (14-36) 12/11/19 03:59 ALT 12 U/L (<35) 12/11/19 03:59 Alkaline Phosphatase 152 U/L (38-126) H 12/11/19 03:59 CK-MB (CK-2) 0.88 ng/mL (<4.55) 12/10/19 06:47 Total Protein 6.6 g/dL (6.3-8.2) 12/11/19 03:59 Albumin 3.3 g/dL (3.5-5.0) L 12/11/19 03:59 COVID-19 Source NASOPHARYNGEAL 12/09/19 23:10 COVID-19 (NOEL) NOT DETECTED 12/09/19 23:10 Slides for Path Review Cancelled 12/10/19 06:47 12/09/19 12/10/19 21:10 06:47 CK-MB (CK-2) 1.86 0.88 Impressions: Soft Tissue Neck CT 12/09/19 11:28 IMPRESSION: 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 The appearance of right anterior mandibular cortical rarefaction of the alveolar ridge suggests odontogenic origin. KUB X-Ray 12/10/19 00:00 IMPRESSION: Nasoenteric tube tip overlies gastric body. Chest X-Ray 12/10/19 06:00 IMPRESSION: 1. Left lung base atelectasis versus consolidation. 2. Endotracheal tube demonstrating appropriate positioning. KUB X-Ray 12/10/19 07:38 IMPRESSION: Enteric tube tip and proximal port projects subdiaphragmatically within the left upper quadrant. Chest X-Ray 12/11/19 06:00 IMPRESSION: Improved left basilar aeration without other evidence of acute intrathoracic process. Endotracheal tube tip overlies midthoracic trachea. Plan Plan of Treatment: Follow-up with PCP within 1 week of hospital discharge Follow-up with Dr. Luis Miguel Hope on 12/15/2019 at 0830 Continue Levaquin and metronidazole Return to the ED activate EMS for increased swelling, difficulty swallowing, difficulty breathing Time Spent: Greater than 30 Minutes Stroke Is this a Stroke Patient?: No Acute Heart Failure - Is this a Heart Failure Patient?: No
[2019-12-14] MEDS: SIMVASTATIN 40 MG TABLET NG SCH (10:24)
[2019-12-14] MEDS ORDERED: METRONIDAZOLE 500 MG TABLET PO ONE (10:30)
[2019-12-14 10:55] VITALS: BP 132/63
== END 2019-12-14 11:15 | disposition home or self-care (01) | DRG 854 ==
LOC: ER 11:04 → EH 16:28 → ICU 19:06 → 4S 12-11 15:50
PROVIDERS: ADMIT Internal Medicine; ATTEND Nurse Practitioner
PROC: 5A1945Z Respiratory Ventilation, 24-96 Consecutive Hours (ICD-10-PCS; 2019-12-09)
PROC: 0W9300Z Drainage of Oral Cavity and Throat with Drainage Device, Open Approach (ICD-10-PCS; principal; 2019-12-09 16:45)
DX: A40.8 Other streptococcal sepsis (principal); K12.2 Cellulitis and abscess of mouth; K14.0 Glossitis; E10.9 Type 1 diabetes mellitus without complications; D72.829 Elevated white blood cell count, unspecified; E78.5 Hyperlipidemia, unspecified; M19.90 Unspecified osteoarthritis, unspecified site; E03.9 Hypothyroidism, unspecified; Z96.651 Presence of right artificial knee joint; Z20.828 Contact with and (suspected) exposure to other viral communicable diseases
CPT/HCPCS: 00170; 36415; 70491; 71045; 74018; 80048; 80053; 82553; 82803; 82962; 83605; 83735; 85025; 87040; 87070; 87075; 87077; 87186; 87205; 87635; 93005; 93010; 94002; 94003; 94799; 96361; 96365; 96375; 99140; 99285; 99291; C9803; J1100; J1200; J1815; J1956; J2001; J2250; J2270; J2405; J2704; J2930; J3010; J3490; J7120; J8540; S0028

== ENCOUNTER → 2020-04-08 | Outpatient (CLI) | payer MEDICARE, MEDICAID | LOC: OD 11:58 | PROVIDERS: ATTEND Dentist Oral and Maxillofacial Surgery | DX: M87.180 Osteonecrosis due to drugs, jaw (principal) | CPT/HCPCS: 36415; 82523 ==